=== PATIENT | female | born 1940 | race Caucasian/White ===

== ENCOUNTER 2017-11-07 13:46 | Inpatient (IN) | payer MEDICARE, BC ==
[~2017-11-07] VITALS: Ht 167.6 cm; Wt 78.2 kg
--- NOTE | ~2017-11-07 | OP ---
PATIENT NAME: BRIAN PALACIO MEDICAL RECORD: [id number] :40 LOCATION:[facility] ADMISSION DATE:11/07/17 SURGEON: LUZ MARINA NOVAK MD DATE OF OPERATION: 11/07/2017 DATE OF PROCEDURE: 11/07/2017 beginning and ending 11/08/2017 PREOPERATIVE DIAGNOSIS: Comminuted intra-articular distal femur fracture with split condyle. POSTOPERATIVE DIAGNOSIS: Comminuted intra-articular distal femur fracture with split condyle. PROCEDURE: Knee spanning birail external fixator application across the knee for the above the diagnosis. SURGEON: Luz Marina Novak MD ANESTHESIA: General. INTRAOPERATIVE COMPLICATIONS: None. SUMMARY OF PATHOLOGIC FINDINGS: Under fluoroscopy while putting the ex-fix on the knee, lined up fairly well; however, it was noted at this time that the patient has an amount of flexion as well as a split in the condyle that was not previously seen on radiographs. Rather than trying to proceed with internal fixation, I am going to have a CT scan done with 3D recons for better preoperative planning after this has a chance to settle down. OPERATIVE SUMMARY IN DETAIL: After obtaining the appropriate preoperative orthopedic surgery consent as well as anesthetic consultation, evaluation, and clearance, the patient was brought to the operating room and placed on the operating table in supine position. After adequate general endotracheal anesthesia was administered, the patient's right lower extremity was prepped and draped in routine sterile fashion. Under direct fluoroscopy, traction maneuver was performed and I felt like the fragments would line up better and give her more stabilized leg. Of note, she did come to the OR with the femur flexed distally at 90 degrees while her knee joint was actually straight. After the reduction maneuver and traction, it lined up fairly nicely. Two [place] pins were placed in the mid shaft of the femur under direct fluoroscopic visualization. Two [place] pins were placed in the lateral aspect of the tibia again under correct fluoroscopic visualization. Birail external fixator Roselia II MR compatible frame was used. AP and lateral views showed excellent reapproximation of the posterior cortex; however, there is substantial amount of anterior comminution. This is going to have to be dealt with in an open fashion. Again, radiographs were taken on AP and lateral planes and submitted for final radiologist review. All final needle and sponge counts were correct. TRANSINT:[id number] Voice Confirmation ID: [id number] DOCUMENT ID: [id number] OPERATIVE REPORT [id number] BRIAN PALACIO MD, LUZ MARINA CASSIDY at 1341 CC: [id number] DICTATION DATE: 11/08/17 001 MARBLE MACHINE OPERATOR: 11/08/17 1027 ADM IN [place] [id number] [place] [id number]
--- NOTE | ~2017-11-07 | CN ---
PATIENT NAME:BRIAN CORTEZ MEDICAL RECORD: [id number] : 40 LOCATION:[facility] ADMIT DATE: 11/07/17 ACCOUNT: [id number] CONSULTING PHYSICIAN: LOIS PLUMMER MD REFERRING PHYSICIAN: LUZ MARINA NOVAK MD DATE OF CONSULTATION: 11/09/2017 Otolaryngology Consultation HISTORY OF PRESENT ILLNESS: Ms. Cortez is 2 days status post injury from a fall, started having right ear pain yesterday. She had surgery on her left leg. The pain is worse at night. On talking to her now it was not present when I was evaluating her today, there is no pain currently. There is no drainage from the ear and she has not noticed any change in her hearing. No tinnitus, no dizziness, but she complains of the ear hurting and tried a heating pad last night that did not really help. She and her are both dentists. He was thinking that it did seem to be referred pain that she was having possibly from a molar on that right side. He said the tenderness seemed to locate more towards the angle of the mandible. PAST MEDICAL HISTORY: Reviewed on chart. PHYSICAL EXAMINATION: GENERAL: She is somewhat sedated. Her legs are immobilized and she is in hospital bed, but she is awake and can cooperate. EYES: Sclerae and conjunctivae are normal. FACE: She has got a big hematoma over the left moravian and lateral brow and some abrasions there. No abrasions on the chin or the jaw or lower face that I can see. EARS: Canals and TMs are normal. She has no tenderness in the canal. The skin looks normal. TMs are intact and normal. No middle ear effusions. No blood or anything like that. NOSE: Normal. ORAL CAVITY AND OROPHARYNX: She does sleep with her mouth wide open. Her occlusion looks good. She does not tend to have any difficulty or trismus on moving or opening her jaw and it is not associated really with any pain moving her jaw either. She is somewhat tender over the jaw though and not over the tragus or the ear. Cranial nerves are normal. Oral cavity and oropharynx is normal. She has got a couple of mandibular caps on the right side on the molars, but no evidence of any inflammation or infection. No evidence of any cracked or damaged teeth. Occlusion looks good. DIAGNOSTIC STUDIES: Her CT, she did not have the hematoma on the right moravian. The condyles looked good. I do not see any evidence of a subcondylar or mandible fracture or injury to the condyle. They are both very symmetric. Mastoid is well aerated. Ear looks good on CT. IMPRESSION: Right otalgia. Her says she has a history of some severe TMJ problems a long time ago and her teeth ground down because of that, but has not had so much trouble with it lately. She has no evidence of any ear infection or ear trauma, although it looks like most of blood was in the left moravian. She has a hematoma there, which may have caused some asymmetry to her occlusion that I cannot see, may be exacerbating some TMJ and also since she landed on the side of her face, may have had some subtle trauma to the jaw, which caused some TMJ pain on that right side. That seems to be what is going CONSULT REPORT [id number] BRIAN CORTEZ on. I do not see any fracture or any ear problems itself. I think the pain is referred from that. There is not much we can do for it. She is already in the hospital on medications for the other leg fractures and things like that. We are going to see if this clears itself up hopefully with a little time. I went over some conservative measures for TMJ with them, but they are aware of the those and see her back later. TRANSINT:[id number] Voice Confirmation ID: [id number] DOCUMENT ID: [id number] LOIS PLUMMER MD at 1357 CC: [id number] DICTATION DATE: 11/09/17 1424 AGRICULTURAL EQUIPMENT MECHANIC: 11/09/17 1510 DIS IN 11/14/17 [facility] [address] [place] [address]
--- NOTE | ~2017-11-07 | OP ---
PATIENT NAME: BRIAN PALACIO MEDICAL RECORD: [id number] :40 LOCATION:[facility] ADMISSION DATE:11/07/17 SURGEON: LUZ MARINA NOVAK MD DATE OF OPERATION: 11/11/2017 PREOPERATIVE DIAGNOSIS: Comminuted distal femur fracture. POSTOPERATIVE DIAGNOSIS: Comminuted distal femur fracture. PROCEDURE: Open reduction internal fixation of comminuted distal femur fracture. SURGEON: Luz Marina Novak MD ANESTHESIA: General. INTRAOPERATIVE COMPLICATIONS: None. SUMMARY OF PATHOLOGIC FINDINGS: The patient had severe comminution just above the articular surface of the patellofemoral joint. Please note that the patient had an ex-fix placed previously. The ex-fix was left intact in place throughout the entire case and was left in postoperatively. OPERATIVE SUMMARY IN DETAIL: After obtaining the appropriate preoperative surgery consent as well as anesthetic consultation, evaluation and clearance, the patient was brought to the operating room and placed on the operating table in supine position. After general laryngeal mask was administered, the patient was placed in a right lateral decubitus position. All pressure points were well padded to include down leg peroneal pad as well as axillary roll. The patient was held firmly to the operating room using the vacuum pack suction system. Left lower extremity and hip were then prepped and draped in a routine sterile fashion. An incision was made from the joint midline of the lateral thigh. Dissection was carried gently down to the IT band which was split in line with fibers. The IT band, the vastus lateralis was gently split down to the bone with full exposure and hemostasis maintained. Under fluoroscopy, the plate was placed, slight change in the reduction was done by loosening the superior aspect of the ex-fix and realigning it to the desired position and the ex-fix was locked down again, the plate was then put into place under fluoroscopy using combination of both compression and locking screws. Two [place]-M[place] cables were placed around multi fracture fragments distal in the femur. Final radiographs were taken and submitted for radiologist review. Having completed this, the wound was copiously irrigated and the vastus lateralis was closed with #1 Vicryl followed by closure of the IT band with #2 Ethibond. This was then followed by skin closure with #1 Vicryl, 2-0 Vicryl, and skin adilia. Sterile dressings were applied to both the wound as well as reapplied to the external fixator. The patient was then awakened and taken to recovery in stable condition. All final needle and sponge counts were correct. TRANSINT:[id number] Voice Confirmation ID: [id number] DOCUMENT ID: [id number] OPERATIVE REPORT [id number] BRIAN PALACIO MD, LUZ MARINA CASSIDY at 1842 CC: [id number] DICTATION DATE: 11/11/17 1526 POSTAL TRANSPORTATION CLERK: 11/11/17 1557 DIS IN 11/14/17 [place] [id number] [place] [address]
[2017-11-07 16:07] LABS: BASOPHILS 0.1 % (0-2); EOSINOPHILS 0.3 % (0-7); HEMATOCRIT 32.8 % (36.0-48.0); HEMOGLOBIN 11.4 g/dL (12-16); IMMATURE GRANULOCYTES 0.6 % (0-5); LYMPHOCYTES 18.3 % (15-50); MCH 30.1 pg (26.0-34.0); MCHC 34.8 g/dL (31.0-37.0); MCV 86.5 fL (80.0-100.0); MEAN PLATELET VOLUME 11.4 fL (7.4-10.4); MONOCYTES 14.1 % (2-11); NEUTROPHILS 66.6 % (40-80); PLATELET COUNT 213 10x3/uL (130-400); RBC 3.79 10x6/uL (4.00-5.40); RDW 13.2 % (11.5-14.5)
[2017-11-07 16:15] LABS: INR 1.05 (0.85-1.17); PROTIME 13.3 SECONDS (11.6-15.0)
[2017-11-07 16:22] LABS: ALBUMIN 3.7 g/dL (3.4-5.0); ALKALINE PHOSPHATASE 74 U/L (46-116); ALT (SGPT) 20 U/L (10-68); BILIRUBIN - TOTAL 0.71 mg/dL (0.2-1.3); CALC OSMOLALITY 264 mosm/kg (275-300); CALCIUM 9.1 mg/dL (8.5-10.1); CARBON DIOXIDE 24.8 mmol/L (21.0-32.0); CHLORIDE - SERUM 95 mmol/L (98-107); CREATININE - SERUM 0.7 mg/dL (0.6-1.3); GLUCOSE 111 mg/dL (74-106); POTASSIUM - SERUM 3.9 mmol/L (3.5-5.1); PROTEIN - SERUM 6.9 g/dL (6.4-8.2); SODIUM 131 mmol/L (136-145); UREA NITROGEN 16 mg/dL (7-18); eGFR NON AFRICAN AMERICAN 86 mL/min (90-120)
[2017-11-08] VITALS (14 sets, daily range): BP systolic 107–146; BP diastolic 48–68; Ht 167.6 cm; Wt 78.2 kg
[2017-11-08] MEDS ORDERED: ZIAC 5-6.25 MG1 TAB PO (01:58)
[2017-11-08] MEDS ORDERED: COZAAR100 MG PO (01:58)
[2017-11-08] MEDS ORDERED: CARDIZEM30 MG PO (02:00)
[2017-11-08] MEDS ORDERED: BAYER CHEWABLE81 MG PO (02:00)
[2017-11-08] MEDS ORDERED: MULTIPLE VITAMI1 TA1 PO (02:01)
[2017-11-08 10:18] LABS: HEMATOCRIT 27.6 % (36.0-48.0); HEMOGLOBIN 9.5 g/dL (12-16); MCH 29.8 pg (26.0-34.0); MCHC 34.4 g/dL (31.0-37.0); MCV 86.5 fL (80.0-100.0); MEAN PLATELET VOLUME 10.9 fL (7.4-10.4); RBC 3.19 10x6/uL (4.00-5.40); RDW 13.5 % (11.5-14.5)
[2017-11-08 10:20] LABS: WBC 12.4 10x3/uL (4.8-10.8)
[2017-11-08] MEDS ORDERED: CARDIZEM LA120 MG PO (17:38)
[2017-11-09] VITALS: BP 128/65
[2017-11-09 04:00] VITALS: BP 138/69
[2017-11-09 05:32] LABS: HEMOGLOBIN 8.7 g/dL (12-16)
[2017-11-09 08:04] VITALS: BP 146/56
[2017-11-09 18:11] LABS: BASOPHILS 0.1 % (0-2); EOSINOPHILS 0.1 % (0-7); IMMATURE GRANULOCYTES 1.7 % (0-5); LYMPHOCYTES 9.1 % (15-50); MCH 30.7 pg (26.0-34.0); MCHC 36.3 g/dL (31.0-37.0); MEAN PLATELET VOLUME 10.5 fL (7.4-10.4); MONOCYTES 10.9 % (2-11); NEUTROPHILS 78.1 % (40-80); RBC 3.68 10x6/uL (4.00-5.40); RDW 13.6 % (11.5-14.5); WBC 14.5 10x3/uL (4.8-10.8)
[2017-11-09 18:12] LABS: HEMATOCRIT 31.1 % (36.0-48.0); HEMOGLOBIN 11.3 g/dL (12-16); MCV 84.5 fL (80.0-100.0); PLATELET COUNT 106 10x3/uL (130-400)
[2017-11-09 18:37] LABS: ALKALINE PHOSPHATASE 63 U/L (46-116); ALT (SGPT) 25 U/L (10-68); BILIRUBIN - TOTAL 2.13 mg/dL (0.2-1.3); CALC OSMOLALITY 242 mosm/kg (275-300); CALCIUM 7.9 mg/dL (8.5-10.1); CARBON DIOXIDE 26.7 mmol/L (21.0-32.0); CHLORIDE - SERUM 88 mmol/L (98-107); CREATINE KINASE 167 UL (21-215); CREATININE - SERUM 0.7 mg/dL (0.6-1.3); GLUCOSE 105 mg/dL (74-106); POTASSIUM - SERUM 3.9 mmol/L (3.5-5.1); PROTEIN - SERUM 6.1 g/dL (6.4-8.2); SODIUM 121 mmol/L (136-145); TROPONIN-I 0.033 ng/mL (0.000-0.060); UREA NITROGEN 10 mg/dL (7-18); eGFR NON AFRICAN AMERICAN 86 mL/min (90-120)
[2017-11-09 19:54] VITALS: BP 142/83
[2017-11-09 21:02] LABS: ALBUMIN 2.9 g/dL (3.4-5.0); ALKALINE PHOSPHATASE 67 U/L (46-116); ALT (SGPT) 29 U/L (10-68); BILIRUBIN - TOTAL 2.38 mg/dL (0.2-1.3); CALCIUM 7.9 mg/dL (8.5-10.1); CARBON DIOXIDE 25.2 mmol/L (21.0-32.0); CREATININE - SERUM 0.6 mg/dL (0.6-1.3); GLUCOSE 129 mg/dL (74-106); POTASSIUM - SERUM 3.5 mmol/L (3.5-5.1); PROTEIN - SERUM 6.1 g/dL (6.4-8.2); eGFR NON AFRICAN AMERICAN > 90 mL/min (90-120)
[2017-11-09 21:05] LABS: UREA NITROGEN 13 mg/dL (7-18)
[2017-11-09 21:06] LABS: CALC OSMOLALITY 238 mosm/kg (275-300); CHLORIDE - SERUM 85 mmol/L (98-107); SODIUM 117 mmol/L (136-145)
[2017-11-10] VITALS (7 sets, daily range): BP systolic 98–159; BP diastolic 65–89
[2017-11-10 05:42] LABS: BASOPHILS 0 % (0-2); EOSINOPHILS 0.1 % (0-7); HEMATOCRIT 31.4 % (36.0-48.0); HEMOGLOBIN 11.5 g/dL (12-16); IMMATURE GRANULOCYTES 3.2 % (0-5); LYMPHOCYTES 5.1 % (15-50); MCH 30.5 pg (26.0-34.0); MCHC 36.6 g/dL (31.0-37.0); MCV 83.3 fL (80.0-100.0); MEAN PLATELET VOLUME 10.6 fL (7.4-10.4); MONOCYTES 13.2 % (2-11); NEUTROPHILS 78.4 % (40-80); PLATELET COUNT 120 10x3/uL (130-400); RBC 3.77 10x6/uL (4.00-5.40); RDW 13.2 % (11.5-14.5); WBC 14.6 10x3/uL (4.8-10.8)
[2017-11-10 05:58] LABS: ALBUMIN 2.9 g/dL (3.4-5.0); ALKALINE PHOSPHATASE 80 U/L (46-116); BILIRUBIN - TOTAL 2.21 mg/dL (0.2-1.3); CALCIUM 7.8 mg/dL (8.5-10.1); CARBON DIOXIDE 25.7 mmol/L (21.0-32.0); CHLORIDE - SERUM 86 mmol/L (98-107); CREATININE - SERUM 0.6 mg/dL (0.6-1.3); GLUCOSE 97 mg/dL (74-106); POTASSIUM - SERUM 3.3 mmol/L (3.5-5.1); PROTEIN - SERUM 6.2 g/dL (6.4-8.2); SODIUM 121 mmol/L (136-145); eGFR NON AFRICAN AMERICAN > 90 mL/min (90-120)
[2017-11-10 06:04] LABS: ALT (SGPT) 38 U/L (10-68); CALC OSMOLALITY 242 mosm/kg (275-300); UREA NITROGEN 9 mg/dL (7-18)
[2017-11-11 04:00] VITALS: BP 156/89
[2017-11-11 04:39] LABS: BASOPHILS 0.1 % (0-2); EOSINOPHILS 0.5 % (0-7); HEMATOCRIT 32.9 % (36.0-48.0); HEMOGLOBIN 11.7 g/dL (12-16); IMMATURE GRANULOCYTES 1.9 % (0-5); LYMPHOCYTES 6.9 % (15-50); MCHC 35.6 g/dL (31.0-37.0); MCV 84.4 fL (80.0-100.0); MEAN PLATELET VOLUME 10.9 fL (7.4-10.4); MONOCYTES 18.3 % (2-11); NEUTROPHILS 72.3 % (40-80); RDW 13.4 % (11.5-14.5)
[2017-11-11 04:53] LABS: PLATELET COUNT 154 10x3/uL (130-400); WBC 10.9 10x3/uL (4.8-10.8)
[2017-11-11 05:04] LABS: ALBUMIN 2.6 g/dL (3.4-5.0); ALKALINE PHOSPHATASE 71 U/L (46-116); ALT (SGPT) 29 U/L (10-68); CALC OSMOLALITY 262 mosm/kg (275-300); CALCIUM 7.8 mg/dL (8.5-10.1); CARBON DIOXIDE 27.7 mmol/L (21.0-32.0); CHLORIDE - SERUM 98 mmol/L (98-107); CREATININE - SERUM 0.5 mg/dL (0.6-1.3); GLUCOSE 101 mg/dL (74-106); POTASSIUM - SERUM 3.2 mmol/L (3.5-5.1); PROTEIN - SERUM 5.8 g/dL (6.4-8.2); SODIUM 132 mmol/L (136-145); UREA NITROGEN 8 mg/dL (7-18); eGFR NON AFRICAN AMERICAN > 90 mL/min (90-120)
[2017-11-11 07:47] VITALS: BP 161/78
[2017-11-11 14:41] VITALS: BP 157/91
[2017-11-11 19:53] VITALS: BP 115/63
[2017-11-12] VITALS: BP 131/55; BP 131/78
[2017-11-12 04:00] VITALS: BP 131/85
[2017-11-12 06:38] LABS: BASOPHILS 0 % (0-2); EOSINOPHILS 0 % (0-7); HEMATOCRIT 29.8 % (36.0-48.0); HEMOGLOBIN 10.5 g/dL (12-16); IMMATURE GRANULOCYTES 1.4 % (0-5); LYMPHOCYTES 8.5 % (15-50); MCH 30.1 pg (26.0-34.0); MCHC 35.2 g/dL (31.0-37.0); MCV 85.4 fL (80.0-100.0); MEAN PLATELET VOLUME 10.6 fL (7.4-10.4); MONOCYTES 10.5 % (2-11); NEUTROPHILS 79.6 % (40-80); PLATELET COUNT 177 10x3/uL (130-400); RBC 3.49 10x6/uL (4.00-5.40); RDW 13.8 % (11.5-14.5); WBC 13.2 10x3/uL (4.8-10.8)
[2017-11-12 06:57] LABS: ALBUMIN 2.3 g/dL (3.4-5.0); ALKALINE PHOSPHATASE 60 U/L (46-116); ALT (SGPT) 20 U/L (10-68); BILIRUBIN - TOTAL 0.86 mg/dL (0.2-1.3); CALC OSMOLALITY 262 mosm/kg (275-300); CALCIUM 7.4 mg/dL (8.5-10.1); CARBON DIOXIDE 26.3 mmol/L (21.0-32.0); CHLORIDE - SERUM 98 mmol/L (98-107); CREATININE - SERUM 0.5 mg/dL (0.6-1.3); GLUCOSE 113 mg/dL (74-106); PROTEIN - SERUM 5.3 g/dL (6.4-8.2); SODIUM 131 mmol/L (136-145); UREA NITROGEN 10 mg/dL (7-18); eGFR NON AFRICAN AMERICAN > 90 mL/min (90-120)
[2017-11-12 08:17] VITALS: BP 135/64
[2017-11-12 11:52] VITALS: BP 129/68
[2017-11-12 20:00] VITALS: BP 131/51
[2017-11-13] VITALS: BP 128/63
[2017-11-13 04:00] VITALS: BP 123/65
[2017-11-13 05:41] LABS: BASOPHILS 0.2 % (0-2); EOSINOPHILS 1.1 % (0-7); HEMATOCRIT 29.5 % (36.0-48.0); HEMOGLOBIN 10.2 g/dL (12-16); IMMATURE GRANULOCYTES 2.8 % (0-5); LYMPHOCYTES 11.8 % (15-50); MCH 30.1 pg (26.0-34.0); MCHC 34.6 g/dL (31.0-37.0); MEAN PLATELET VOLUME 10.3 fL (7.4-10.4); NEUTROPHILS 69.1 % (40-80); PLATELET COUNT 188 10x3/uL (130-400); RBC 3.39 10x6/uL (4.00-5.40); RDW 14.2 % (11.5-14.5); WBC 11.9 10x3/uL (4.8-10.8)
[2017-11-13 06:04] LABS: ALBUMIN 2.2 g/dL (3.4-5.0); ALKALINE PHOSPHATASE 61 U/L (46-116); ALT (SGPT) 22 U/L (10-68); BILIRUBIN - TOTAL 0.84 mg/dL (0.2-1.3); CALC OSMOLALITY 265 mosm/kg (275-300); CALCIUM 7.8 mg/dL (8.5-10.1); CARBON DIOXIDE 26.8 mmol/L (21.0-32.0); CHLORIDE - SERUM 100 mmol/L (98-107); CREATININE - SERUM 0.5 mg/dL (0.6-1.3); GLUCOSE 98 mg/dL (74-106); POTASSIUM - SERUM 3.7 mmol/L (3.5-5.1); PROTEIN - SERUM 5.1 g/dL (6.4-8.2); SODIUM 134 mmol/L (136-145); UREA NITROGEN 6 mg/dL (7-18); eGFR NON AFRICAN AMERICAN > 90 mL/min (90-120)
[2017-11-13 09:07] VITALS: BP 105/45
[2017-11-13 13:26] VITALS: BP 140/73
[2017-11-13 16:19] VITALS: BP 129/59
[2017-11-13 20:00] VITALS: BP 127/58
[2017-11-14] VITALS: BP 139/65
[2017-11-14 04:00] VITALS: BP 151/74
[2017-11-14 06:40] LABS: ALKALINE PHOSPHATASE 76 U/L (46-116); ALT (SGPT) 27 U/L (10-68); BILIRUBIN - TOTAL 0.79 mg/dL (0.2-1.3); CALC OSMOLALITY 263 mosm/kg (275-300); CALCIUM 7.7 mg/dL (8.5-10.1); CARBON DIOXIDE 27.3 mmol/L (21.0-32.0); CHLORIDE - SERUM 100 mmol/L (98-107); CREATININE - SERUM 0.4 mg/dL (0.6-1.3); GLUCOSE 83 mg/dL (74-106); POTASSIUM - SERUM 3.7 mmol/L (3.5-5.1); PROTEIN - SERUM 5.1 g/dL (6.4-8.2); SODIUM 134 mmol/L (136-145); UREA NITROGEN 5 mg/dL (7-18); eGFR NON AFRICAN AMERICAN > 90 mL/min (90-120)
[2017-11-14 06:54] LABS: BASOPHILS 0.1 % (0-2); EOSINOPHILS 2.3 % (0-7); HEMATOCRIT 29.1 % (36.0-48.0); HEMOGLOBIN 9.9 g/dL (12-16); IMMATURE GRANULOCYTES 1.9 % (0-5); LYMPHOCYTES 14.1 % (15-50); MCV 88.2 fL (80.0-100.0); MEAN PLATELET VOLUME 10.1 fL (7.4-10.4); MONOCYTES 16.6 % (2-11); PLATELET COUNT 216 10x3/uL (130-400); RDW 14.7 % (11.5-14.5); WBC 9.9 10x3/uL (4.8-10.8)
[2017-11-14 08:21] VITALS: BP 143/67
[2017-11-14] MEDS ORDERED: LOVENOX40 MG/0.4 SC (08:34)
[2017-11-14] MEDS ORDERED: HYDROCODONE-APA1 TAB PO (08:35)
[2017-12-07] MEDS ORDERED: CITRACAL + D E1 EACH PO ×2 (11:25)
[2017-12-07] MEDS ORDERED: ZEBETA5 MG PO (11:25)
[2017-12-07] MEDS ORDERED: NORCO 7.5/325 T1 TA1 PO (11:26)
[2017-12-07] MEDS ORDERED: MULTIPLE VITAMI1 TA1 PO (11:27)
[2017-12-07] MEDS ORDERED: MIRALAX17 GM PO (11:27)
[2017-12-07] MEDS ORDERED: DOK PLUS TABL1 UDTAB PO (11:27)
[2017-12-07] MEDS ORDERED: DIOVAN160 MG PO (11:28)
== END 2017-11-14 14:42 | disposition swing bed (61) | DRG 480 ==
LOC: D.ER 13:46 → D.EDHOLD 17:02 → D.MS 17:02
PROVIDERS: Emergency Medicine; Family Medicine; Orthopaedic Surgery
PROC: 0QH Lower Bones, Insertion (ICD-10-PCS; principal; 2017-11-07 17:30)
PROC: 0QSC04Z Reposition Left Lower Femur with Internal Fixation Device, Open Approach (ICD-10-PCS; 2017-11-11)
DX: S72.452A Displaced supracondylar fracture without intracondylar extension of lower end of left femur, initial encounter for closed fracture (principal); G93.41 Metabolic encephalopathy; R53.2 Functional quadriplegia; D62 Acute posthemorrhagic anemia; E87.1 Hypo-osmolality and hyponatremia; J45.909 Unspecified asthma, uncomplicated; W19.XXXA Unspecified fall, initial encounter; H92.01 Otalgia, right ear; I10 Essential (primary) hypertension; I48.91 Unspecified atrial fibrillation; K59.00 Constipation, unspecified

== ENCOUNTER 2017-12-08 07:54 | Inpatient (IN) | payer MEDICARE, BC ==
[~2017-12-08] VITALS: Ht 167.6 cm; Wt 66.8 kg
--- NOTE | ~2017-12-08 | OP ---
PATIENT NAME: BRIAN CORTEZ MEDICAL RECORD: [id number] :40 LOCATION:[facility] ADMISSION DATE:12/08/17 SURGEON: LUZ MARINA NOVAK MD DATE OF OPERATION: 12/08/2017 PREOPERATIVE DIAGNOSIS: Retained external fixator -- knee spanning, left lower extremity, birail. POSTOPERATIVE DIAGNOSIS: Retained external fixator -- knee spanning left lower extremity, birail. PROCEDURE: Removal of external fixator, left lower extremity. SURGEON: Luz Marina Novak MD ANESTHESIA: TIVA. INTRAOPERATIVE COMPLICATIONS: None. SUMMARY OF PATHOLOGIC FINDINGS: Essentially none. 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 External fixator was left in place to protect the internal fixation and allow for interim healing. She is brought back today for removal of the external fixator and admission to rehab. OPERATIVE SUMMARY IN DETAIL: After obtaining the appropriate preoperative orthopedic surgery consent as well as anesthetic consultation, evaluation and clearance, the patient was brought to the operating room and placed on the operating table in supine position. After adequate TIVA anesthesia was administered, the entire lower extremity and external fixator construct was prepped and draped in a routine sterile fashion. Serial and sequential removal of the birail external fixator was followed by removal of the apex pins under TIVA. The apex pins were removed. The apex pin sites were gently irrigated covered with Betadine cream and Xeroform dressing. Sterile dressings were applied. The patient was then awakened and taken to recovery room in stable condition. TRANSINT:[id number] Voice Confirmation ID: [id number] DOCUMENT ID: [id number] LUZ MARINA NOVAK MD at 1349 CC: [id number] DICTATION DATE: 12/08/17 1303 TEST EQUIPMENT MECHANIC: 12/08/17 1610 ADM IN [place] [id number] [place] [address]
[~2017-12-08 07:54] MED LIST: BAYER CHEWABLE81 MG PO; CARDIZEM LA120 MG PO; CARDIZEM30 MG PO; CITRACAL + D E1 EACH PO; COZAAR100 MG PO; DIOVAN160 MG PO; DOK PLUS TABL1 UDTAB PO; HYDROCODONE-APA1 TAB PO; LOVENOX40 MG/0.4 SC; MIRALAX17 GM PO; MULTIPLE VITAMI1 TA1 PO; NORCO 7.5/325 T1 TA1 PO; ZEBETA5 MG PO; ZIAC 5-6.25 MG1 TAB PO
[2017-12-08 09:51] VITALS: BP 138/77; BMI 23.9
[2017-12-08 14:34] VITALS: BP 143/76; Ht 167.6 cm; Wt 66.8 kg
[2017-12-08 16:26] VITALS: BP 144/76
[2017-12-08 22:29] VITALS: BP 127/79
[2017-12-09 04:53] VITALS: BP 134/74
[2017-12-09 05:31] LABS: HEMATOCRIT 33.8 % (36.0-48.0); HEMOGLOBIN 11.3 g/dL (12-16)
[2017-12-09 08:26] VITALS: BP 160/78
[2017-12-09 12:47] VITALS: BP 176/84
[2017-12-09 16:17] VITALS: BP 118/61
[2017-12-09 20:00] VITALS: BP 117/64
[2017-12-10] VITALS: BP 122/71
[2017-12-10 04:00] VITALS: BP 127/69
[2017-12-10 06:24] LABS: HEMATOCRIT 32.3 % (36.0-48.0); HEMOGLOBIN 10.8 g/dL (12-16); MCH 29.9 pg (26.0-34.0); MCHC 33.4 g/dL (31.0-37.0); MCV 89.5 fL (80.0-100.0); MEAN PLATELET VOLUME 10.8 fL (7.4-10.4); RBC 3.61 10x6/uL (4.00-5.40); RDW 13.9 % (11.5-14.5); WBC 4.8 10x3/uL (4.8-10.8)
[2017-12-10 06:33] LABS: CALC OSMOLALITY 278 mosm/kg (275-300); CALCIUM 8.4 mg/dL (8.5-10.1); CARBON DIOXIDE 32.4 mmol/L (21.0-32.0); CHLORIDE - SERUM 104 mmol/L (98-107); CREATININE - SERUM 0.5 mg/dL (0.6-1.3); GLUCOSE 93 mg/dL (74-106); SODIUM 141 mmol/L (136-145); UREA NITROGEN 8 mg/dL (7-18); eGFR NON AFRICAN AMERICAN > 90 mL/min (90-120)
[2017-12-10 07:42] VITALS: BP 159/79
[2017-12-10 12:18] VITALS: BP 131/70
[2017-12-10 15:49] VITALS: BP 86/44
[2017-12-10 20:00] VITALS: BP 155/81
[2017-12-11 05:39] LABS: HEMATOCRIT 31.7 % (36.0-48.0); HEMOGLOBIN 10.5 g/dL (12-16)
[2017-12-11 08:21] VITALS: BP 142/73
[2017-12-11 12:29] VITALS: BP 140/63
[2017-12-11 16:35] VITALS: BP 110/57
[2017-12-12 04:20] VITALS: BP 145/77
[2017-12-12 07:42] VITALS: BP 141/68
[2017-12-12 12:24] VITALS: BP 124/68
[2017-12-12] MEDS ORDERED: ELIQUIS2.5 MG PO (14:11)
== END 2017-12-12 16:45 | DRG 561 ==
LOC: D.OPS 07:54 → D.PAN 11:45 → D.OPS 11:45 → D.MS 13:39 → D.OPS 13:40 → D.MS 12-12 16:45
PROVIDERS: Orthopaedic Surgery
PROC: 0QPCX5Z Removal of External Fixation Device from Left Lower Femur, External Approach (ICD-10-PCS; principal; 2017-12-08 10:15)
DX: S72.402D Unspecified fracture of lower end of left femur, subsequent encounter for closed fracture with routine healing (principal); X58.XXXD Exposure to other specified factors, subsequent encounter; I10 Essential (primary) hypertension; I48.91 Unspecified atrial fibrillation; J45.909 Unspecified asthma, uncomplicated

== ENCOUNTER 2017-12-12 17:44 | Inpatient (IN) | payer MEDICARE, BC ==
[~2017-12-12] VITALS: Ht 167.6 cm; Wt 67.1 kg
--- NOTE | ~2017-12-12 | RHP ---
PATIENT: BRIAN PALACIO MEDICAL RECORD: [id number] ACCOUNT: [id number] LOCATION:[facility]19 : 40 ADMISSION DATE: 12/12/17 REHABILITATION HISTORY AND PHYSICAL EXAMINATION POST ADMISSION PHYSICIAN EXAMINATION DATE OF ADMISSION: 12/12/2017 ADMITTING DIAGNOSIS: Disuse myopathy. 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 The patient got this diagnosis secondary to prolonged hospitalization, nonweightbearing status, status post comminuted fracture of her left distal femur and application of external fixator. On 10/28, she fell while going to the doctor and fractured her left femur. She went to the OR, had an external fixator placed. On 11/11, she had an ORIF of her left distal femur. She was toe-touch weightbearing status and was sent to a skilled facility in [place]. On 12/08, she was admitted for removal of the external fixator. Postop, she had blood loss anemia, low-grade fever, and hypokalemia. She has got prolonged immobility, progressive generalized weakness, especially in lower extremities affecting her tolerance to PT. She is very fatigued, has limited flexion and extension of her lower extremities. Proximal muscle strength is decreased and she is gmnekldm-bd-dgk assist for ADLs and tcmgqtgz-pj-rof assist for sit to stand and bed to chair. She is highly motivated and has good family support to regain her strength, return back home in her prior level of functioning where she was independent without any type of assisting device. COMORBIDITIES: Include status post removal of external fixator, comminuted left distal femur fracture, hypokalemia, functional quadriplegia, acute blood loss anemia, asthma, history of TIA, metabolic encephalopathy. PAST MEDICAL HISTORY: Significant for a TIA in the past. She has had sinus problems, cataracts, got a history of chronic atrial fib and asthma. PAST SURGICAL HISTORY: Includes wrist fracture, hip surgery, hysterectomy. ALLERGIES: SULFA, EUCALYPTUS, AND APRICOTS. CURRENT MEDICATIONS: Include MiraLax 17 grams in 8 ounces of water daily, multivitamin daily, Cardizem CD 120 mg daily, Bisoprolol 5 mg daily, valsartan 160 mg q.h.s. She is on Os-Juni D daily, hydrocodone 7.5/325 one tab q.4 hours p.r.n., aspirin chewable 81 mg daily, and Eliquis 2.5 mg b.i.d. HABITS: No alcohol or tobacco use. FAMILY HISTORY: Noncontributory. SOCIAL HISTORY: The patient hopes to return back home and get back to her prior level of functioning where she was independent without assisting device. REVIEW OF SYSTEMS: GENERAL: Does complain of weakness and fatigue. HEENT: Denies cold, cough, or congestion. CARDIOVASCULAR: Denies chest pain. HISTORY AND PHYSICAL [id number] BRIAN PALACIO PHYSICAL EXAMINATION: VITAL SIGNS: Stable, afebrile. GENERAL: Elderly female, in no distress. HEENT: Normocephalic and atraumatic. Mucosa moist. NECK: Supple. No lymphadenopathy. LUNGS: Clear at this time. HEART: An irregular rate and rhythm. ABDOMEN: Benign. EXTREMITIES: Consistent with surgery and external fixator placement and removal, but she has no signs of any type of infection. NEUROLOGIC: She seems intact. She does have though proximal muscle weakness. LABORATORY DATA: Her white count is 4.8, H&H of 11 and 34, and platelet count is 241. Her sodium is 140, potassium 3.4, BUN and creatinine of 6 and 0.5 and blood sugar is noted to be 91. ASSESSMENT: This is a 77-year-old female patient admitted to rehab with a working diagnosis of disuse myopathy. The patient has potential to make improvement. We instituted the following multidisciplinary therapies include, but not limited to physical, occupational, respiratory, speech, nutritional services, prosthetics, and orthotics. Given her complex medical condition and risk for more complications, rehabilitation services cannot be provided at a low level of care such as usp facility. PLAN: 1. Admit to [facility] rehab for intensive therapy to include the following disciplines: A. Physical therapy to improve gait, all transfer skills and bed mobility to a modified independent level. B. Occupational therapy to be improve activities of daily living to a modified independent level. C. Case management to assist with discharge planning and placement options. D. Nutrition to assist with nutritional needs. E. Rehabilitation nursing to assist in monitoring the patient's underlying medical conditions and to assist with any type bowel or bladder management. 2. The patient's current medication and medical care will be continued. 3. The patient will be placed on standard fall precautions. 4. The patient's estimated length of stay is approximately 7-10 days. 5. Discuss this patient during care team staff meeting this week. I am going to replace her potassium and followup in the a.m. TRANSINT:[id number] Voice Confirmation ID: [id number] DOCUMENT ID: [id number] 12/15/2017 Edited for juliana HEART. [facility] notes whether there has been none or any medical/functional change since admission: - No chance since preadmission screen. [facility] attests patient continues to be appropriate for IRF: - Continues to be appropriate. HISTORY AND PHYSICAL [id number] BRIAN PALACIO SCOTT MD at 1012 CC: [id number] DICTATION DATE: 12/13/17 08 CHEMICAL INSTRUMENTATION OFFICER: 12/13/17 0850 ADM IN [place] [id number] [place] [address]
[~2017-12-12 17:44] MED LIST changes: +ELIQUIS2.5 MG PO
[2017-12-12 18:08] VITALS: BP 93/55; BMI 23.9
[2017-12-12 19:00] VITALS: BP 115/50
[2017-12-13 06:39] LABS: BASOPHILS 0.2 % (0-2); EOSINOPHILS 2.3 % (0-7); HEMATOCRIT 33.6 % (36.0-48.0); HEMOGLOBIN 11.2 g/dL (12-16); IMMATURE GRANULOCYTES 0.8 % (0-5); LYMPHOCYTES 25.6 % (15-50); MCHC 33.3 g/dL (31.0-37.0); MCV 90.1 fL (80.0-100.0); MONOCYTES 16.8 % (2-11); NEUTROPHILS 54.3 % (40-80); PLATELET COUNT 241 10x3/uL (130-400); RBC 3.73 10x6/uL (4.00-5.40); RDW 14.2 % (11.5-14.5); WBC 4.8 10x3/uL (4.8-10.8)
[2017-12-13 06:52] LABS: CALC OSMOLALITY 276 mosm/kg (275-300); CALCIUM 9.1 mg/dL (8.5-10.1); CARBON DIOXIDE 32.8 mmol/L (21.0-32.0); CHLORIDE - SERUM 103 mmol/L (98-107); CREATININE - SERUM 0.5 mg/dL (0.6-1.3); GLUCOSE 91 mg/dL (74-106); POTASSIUM - SERUM 3.4 mmol/L (3.5-5.1); SODIUM 140 mmol/L (136-145); UREA NITROGEN 6 mg/dL (7-18); eGFR NON AFRICAN AMERICAN > 90 mL/min (90-120)
[2017-12-13 08:05] VITALS: BP 122/63
[2017-12-13 10:55] VITALS: Ht 167.6 cm; Wt 67.1 kg
[2017-12-13 19:00] VITALS: BP 130/68
[2017-12-14 07:29] LABS: BASOPHILS 0 % (0-2); EOSINOPHILS 2.8 % (0-7); HEMATOCRIT 34.6 % (36.0-48.0); HEMOGLOBIN 11.6 g/dL (12-16); LYMPHOCYTES 17.8 % (15-50); MCHC 33.5 g/dL (31.0-37.0); MCV 89.4 fL (80.0-100.0); MEAN PLATELET VOLUME 10.6 fL (7.4-10.4); MONOCYTES 17.6 % (2-11); NEUTROPHILS 58.8 % (40-80); PLATELET COUNT 249 10x3/uL (130-400); RBC 3.87 10x6/uL (4.00-5.40); RDW 14.1 % (11.5-14.5); WBC 4.9 10x3/uL (4.8-10.8)
[2017-12-14 07:44] LABS: CALC OSMOLALITY 276 mosm/kg (275-300); CALCIUM 9.2 mg/dL (8.5-10.1); CARBON DIOXIDE 31.7 mmol/L (21.0-32.0); CHLORIDE - SERUM 103 mmol/L (98-107); CREATININE - SERUM 0.5 mg/dL (0.6-1.3); GLUCOSE 96 mg/dL (74-106); POTASSIUM - SERUM 3.7 mmol/L (3.5-5.1); SODIUM 140 mmol/L (136-145); UREA NITROGEN 7 mg/dL (7-18); eGFR NON AFRICAN AMERICAN > 90 mL/min (90-120)
[2017-12-14 08:21] VITALS: BP 113/66
[2017-12-14 19:05] VITALS: BP 126/51
[2017-12-15 07:33] VITALS: BP 140/65
[2017-12-15 19:15] VITALS: BP 122/56
[2017-12-16 05:52] LABS: BASOPHILS 0.2 % (0-2); EOSINOPHILS 2.5 % (0-7); IMMATURE GRANULOCYTES 1.9 % (0-5); LYMPHOCYTES 23.4 % (15-50); MCH 29.9 pg (26.0-34.0); MCHC 33.3 g/dL (31.0-37.0); MCV 89.8 fL (80.0-100.0); MEAN PLATELET VOLUME 10.6 fL (7.4-10.4); MONOCYTES 18.4 % (2-11); NEUTROPHILS 53.6 % (40-80); PLATELET COUNT 236 10x3/uL (130-400); RBC 3.34 10x6/uL (4.00-5.40); RDW 14.2 % (11.5-14.5); WBC 4.8 10x3/uL (4.8-10.8)
[2017-12-16 06:01] LABS: CALC OSMOLALITY 278 mosm/kg (275-300); CALCIUM 9.1 mg/dL (8.5-10.1); CARBON DIOXIDE 33.1 mmol/L (21.0-32.0); CHLORIDE - SERUM 103 mmol/L (98-107); CREATININE - SERUM 0.6 mg/dL (0.6-1.3); GLUCOSE 94 mg/dL (74-106); POTASSIUM - SERUM 4.1 mmol/L (3.5-5.1); SODIUM 141 mmol/L (136-145); UREA NITROGEN 7 mg/dL (7-18); eGFR NON AFRICAN AMERICAN > 90 mL/min (90-120)
[2017-12-16 08:00] VITALS: BP 134/75
[2017-12-16 19:00] VITALS: BP 126/64
[2017-12-17 07:00] VITALS: BP 146/71
[2017-12-17 23:09] VITALS: BP 144/76
[2017-12-18 08:00] VITALS: BP 155/72
[2017-12-18 20:15] VITALS: BP 143/81
[2017-12-19 07:45] LABS: BASOPHILS 0.2 % (0-2); EOSINOPHILS 1.5 % (0-7); HEMATOCRIT 31.6 % (36.0-48.0); HEMOGLOBIN 10.4 g/dL (12-16); IMMATURE GRANULOCYTES 1.3 % (0-5); LYMPHOCYTES 19.2 % (15-50); MCH 29.6 pg (26.0-34.0); MCHC 32.9 g/dL (31.0-37.0); MEAN PLATELET VOLUME 10.5 fL (7.4-10.4); MONOCYTES 19.4 % (2-11); NEUTROPHILS 58.4 % (40-80); PLATELET COUNT 254 10x3/uL (130-400); RBC 3.51 10x6/uL (4.00-5.40); RDW 14.1 % (11.5-14.5); WBC 4.5 10x3/uL (4.8-10.8)
[2017-12-19 08:00] VITALS: BP 150/72
[2017-12-19 08:02] LABS: CALC OSMOLALITY 278 mosm/kg (275-300); CALCIUM 8.9 mg/dL (8.5-10.1); CARBON DIOXIDE 32.4 mmol/L (21.0-32.0); CHLORIDE - SERUM 104 mmol/L (98-107); CREATININE - SERUM 0.6 mg/dL (0.6-1.3); GLUCOSE 92 mg/dL (74-106); SODIUM 141 mmol/L (136-145); UREA NITROGEN 6 mg/dL (7-18); eGFR NON AFRICAN AMERICAN > 90 mL/min (90-120)
[2017-12-19 19:00] VITALS: BP 142/70
[2017-12-20 07:44] VITALS: BP 149/67
[2017-12-20 19:27] VITALS: BP 104/51
[2017-12-21 07:18] LABS: BASOPHILS 0.2 % (0-2); EOSINOPHILS 1.1 % (0-7); HEMATOCRIT 30.3 % (36.0-48.0); HEMOGLOBIN 10.1 g/dL (12-16); LYMPHOCYTES 27.8 % (15-50); MCH 30.2 pg (26.0-34.0); MCHC 33.3 g/dL (31.0-37.0); MCV 90.7 fL (80.0-100.0); MEAN PLATELET VOLUME 10.9 fL (7.4-10.4); MONOCYTES 15.1 % (2-11); NEUTROPHILS 53.8 % (40-80); PLATELET COUNT 227 10x3/uL (130-400); RBC 3.34 10x6/uL (4.00-5.40); RDW 14.1 % (11.5-14.5); WBC 4.5 10x3/uL (4.8-10.8)
[2017-12-21 07:25] LABS: CALC OSMOLALITY 278 mosm/kg (275-300); CARBON DIOXIDE 32.5 mmol/L (21.0-32.0); CHLORIDE - SERUM 103 mmol/L (98-107); CREATININE - SERUM 0.5 mg/dL (0.6-1.3); GLUCOSE 104 mg/dL (74-106); POTASSIUM - SERUM 3.6 mmol/L (3.5-5.1); SODIUM 141 mmol/L (136-145); eGFR NON AFRICAN AMERICAN > 90 mL/min (90-120)
[2017-12-21 07:27] LABS: UREA NITROGEN 8 mg/dL (7-18)
[2017-12-21 07:38] VITALS: BP 125/68
[2017-12-21 19:00] VITALS: BP 129/59
[2017-12-22 07:52] VITALS: BP 108/65
[2017-12-22 19:00] VITALS: BP 93/45
[2017-12-23 08:19] VITALS: BP 98/58
[2017-12-23 19:00] VITALS: BP 122/55
[2017-12-24 06:58] LABS: BASOPHILS 0.2 % (0-2); EOSINOPHILS 1.7 % (0-7); HEMATOCRIT 32.3 % (36.0-48.0); HEMOGLOBIN 10.7 g/dL (12-16); IMMATURE GRANULOCYTES 0.8 % (0-5); MCH 29.9 pg (26.0-34.0); MCHC 33.1 g/dL (31.0-37.0); MCV 90.2 fL (80.0-100.0); MEAN PLATELET VOLUME 10.5 fL (7.4-10.4); MONOCYTES 16.1 % (2-11); NEUTROPHILS 58.2 % (40-80); PLATELET COUNT 267 10x3/uL (130-400); RBC 3.58 10x6/uL (4.00-5.40); RDW 14.2 % (11.5-14.5); WBC 4.8 10x3/uL (4.8-10.8)
[2017-12-24 07:12] LABS: CALC OSMOLALITY 276 mosm/kg (275-300); CALCIUM 9.2 mg/dL (8.5-10.1); CARBON DIOXIDE 31.7 mmol/L (21.0-32.0); CHLORIDE - SERUM 103 mmol/L (98-107); CREATININE - SERUM 0.6 mg/dL (0.6-1.3); GLUCOSE 94 mg/dL (74-106); POTASSIUM - SERUM 3.8 mmol/L (3.5-5.1); SODIUM 140 mmol/L (136-145); UREA NITROGEN 8 mg/dL (7-18); eGFR NON AFRICAN AMERICAN > 90 mL/min (90-120)
[2017-12-24 08:00] VITALS: BP 108/68
[2017-12-24 20:49] VITALS: BP 108/47
[2017-12-25 08:00] VITALS: BP 157/80
[2017-12-25 19:30] VITALS: BP 122/62
[2017-12-26 06:33] LABS: BASOPHILS 0.2 % (0-2); EOSINOPHILS 1.8 % (0-7); HEMATOCRIT 31.8 % (36.0-48.0); HEMOGLOBIN 10.6 g/dL (12-16); IMMATURE GRANULOCYTES 1.4 % (0-5); LYMPHOCYTES 17.1 % (15-50); MCH 29.9 pg (26.0-34.0); MCHC 33.3 g/dL (31.0-37.0); MCV 89.6 fL (80.0-100.0); MEAN PLATELET VOLUME 10.3 fL (7.4-10.4); MONOCYTES 19.4 % (2-11); NEUTROPHILS 60.1 % (40-80); PLATELET COUNT 249 10x3/uL (130-400); RBC 3.55 10x6/uL (4.00-5.40); RDW 13.9 % (11.5-14.5); WBC 5.1 10x3/uL (4.8-10.8)
[2017-12-26 07:02] LABS: CALC OSMOLALITY 276 mosm/kg (275-300); CALCIUM 9.3 mg/dL (8.5-10.1); CHLORIDE - SERUM 102 mmol/L (98-107); CREATININE - SERUM 0.6 mg/dL (0.6-1.3); GLUCOSE 94 mg/dL (74-106); POTASSIUM - SERUM 3.4 mmol/L (3.5-5.1); SODIUM 140 mmol/L (136-145); UREA NITROGEN 8 mg/dL (7-18); eGFR NON AFRICAN AMERICAN > 90 mL/min (90-120)
[2017-12-26 08:00] VITALS: BP 137/62
[2017-12-26 19:00] VITALS: BP 121/59
[2017-12-27 06:17] LABS: BASOPHILS 0.2 % (0-2); EOSINOPHILS 1.3 % (0-7); HEMATOCRIT 32.8 % (36.0-48.0); HEMOGLOBIN 10.9 g/dL (12-16); IMMATURE GRANULOCYTES 1.3 % (0-5); MCH 29.9 pg (26.0-34.0); MCHC 33.2 g/dL (31.0-37.0); MCV 90.1 fL (80.0-100.0); MEAN PLATELET VOLUME 10.6 fL (7.4-10.4); MONOCYTES 19.9 % (2-11); NEUTROPHILS 58.3 % (40-80); PLATELET COUNT 262 10x3/uL (130-400); RBC 3.64 10x6/uL (4.00-5.40); WBC 5.3 10x3/uL (4.8-10.8)
[2017-12-27 06:38] LABS: ANION GAP 8.7 mmol/L (8-16); CALCIUM 9.8 mg/dL (8.5-10.1); CARBON DIOXIDE 34.9 mmol/L (21.0-32.0); POTASSIUM - SERUM 3.6 mmol/L (3.5-5.1)
[2017-12-27 06:40] LABS: CREATININE - SERUM 0.9 mg/dL (0.6-1.3)
[2017-12-27 08:33] VITALS: BP 126/62
[2017-12-27 19:00] VITALS: BP 103/45
[2017-12-28 07:37] VITALS: BP 92/53
[2017-12-28] MEDS ORDERED: ZEBETA5 MG PO (12:46)
[2017-12-28] MEDS ORDERED: K-DUR20 MEQ PO (12:47)
[2017-12-28] MEDS ORDERED: LASIX20 MG PO (12:51)
[2017-12-28 18:00] VITALS: BP 131/60
[2017-12-29 00:38] VITALS: BP 135/63
[2017-12-29 06:12] VITALS: BP 123/60
[2017-12-29 13:39] VITALS: BP 117/61
== END 2017-12-29 15:15 | disposition home health service (06) | DRG 91 ==
LOC: D.REHAB 17:44
PROVIDERS: Emergency Medicine; Family Medicine
DX: G72.89 Other specified myopathies (principal); R53.2 Functional quadriplegia; G93.41 Metabolic encephalopathy; D62 Acute posthemorrhagic anemia; S72.402D Unspecified fracture of lower end of left femur, subsequent encounter for closed fracture with routine healing; W19.XXXD Unspecified fall, subsequent encounter; E87.6 Hypokalemia; J45.909 Unspecified asthma, uncomplicated

== ENCOUNTER 2020-01-27 19:06 | Inpatient (IN) | payer MEDICARE, BC ==
[~2020-01-27] VITALS: Ht 167.6 cm; Wt 59.9 kg
[~2020-01-27 19:06] MED LIST changes: +K-DUR20 MEQ PO; +LASIX20 MG PO
[2020-01-27] MEDS ORDERED: COZAAR100 MG PO (19:10)
[2020-01-27] MEDS ORDERED: BISOPROLOL FUMAR5 MG PO (19:10)
[2020-01-27] MEDS ORDERED: NORVASC5 MG PO (19:11)
[2020-01-27 20:00] VITALS: BP 142/63
[2020-01-27 20:43] LABS: BASOPHILS 0.1 % (0-2); EOSINOPHILS 0 % (0-7); HEMATOCRIT 34.2 % (36.0-48.0); HEMOGLOBIN 11.8 g/dL (12-16); IMMATURE GRANULOCYTES 1.2 % (0-5); LYMPHOCYTES 4.9 % (15-50); MCH 29.7 pg (26.0-34.0); MCHC 34.5 g/dL (31.0-37.0); MCV 86.1 fL (80.0-100.0); MEAN PLATELET VOLUME 10.2 fL (7.4-10.4); MONOCYTES 10.6 % (2-11); NEUTROPHILS 83.2 % (40-80); RBC 3.97 10x6/uL (4.00-5.40); RDW 13.4 % (11.5-14.5); WBC 12.1 10x3/uL (4.8-10.8)
[2020-01-27 20:45] LABS: PLATELET COUNT 190 10x3/uL (130-400)
[2020-01-27 20:52] LABS: APTT 32.2 SECONDS (22.8-39.4); INR 1.12 (0.85-1.17); PROTIME 14.3 SECONDS (11.6-15.0)
[2020-01-27 21:00] VITALS: BP 130/60
[2020-01-27 21:03] LABS: BILIRUBIN NEGATIVE (NEGATIVE); GLUCOSE NEGATIVE (NEGATIVE); KETONE MODERATE mg/dL (NEGATIVE); NITRITE NEGATIVE (NEGATIVE); UROBILINOGEN NORMAL (NORMAL)
[2020-01-27 21:05] LABS: WHITE CELLS - URINE 0-5 /hpf (NEGATIVE)
[2020-01-27 21:06] LABS: BACTERIA FEW /hpf (NEGATIVE); EPITHELIAL CELLS 0-5 /hpf (0-5)
[2020-01-27 21:07] LABS: ALBUMIN 3.8 g/dL (3.4-5.0); ALKALINE PHOSPHATASE 96 U/L (30-120); ALT (SGPT) 49 U/L (10-68); BILIRUBIN - TOTAL 1.16 mg/dL (0.2-1.3); CALC OSMOLALITY 259 mosm/kg (275-300); CALCIUM 8.4 mg/dL (8.5-10.1); CARBON DIOXIDE 27.8 mmol/L (21.0-32.0); CHLORIDE - SERUM 95 mmol/L (98-107); CREATININE - SERUM 0.7 mg/dL (0.6-1.3); GLUCOSE 135 mg/dL (74-106); PRO BNP 886 pg/mL (0-450); PROTEIN - SERUM 7.3 g/dL (6.4-8.2); SODIUM 129 mmol/L (136-145); UREA NITROGEN 11 mg/dL (7-18); eGFR NON AFRICAN AMERICAN 85 mL/min (90-120)
[2020-01-27 21:09] LABS: TROPONIN-I < 0.017 ng/mL (0.000-0.060)
[2020-01-27 21:12] LABS: POTASSIUM - SERUM 2.8 mmol/L (3.5-5.1)
--- NOTE | 2020-01-27 22:35 | NUR ---
RECEIVED PT TO FLOOR FROM ER VIA STRETCHER. RIGHT WRIST BRUISED AND JABARI WRAPPED. PT RATES RIGHT GROIN/HIP PAIN 2/10 LONG NO MOVEMENT IS INVOLVED. REVIEWED HOME MEDS AND HISTORY. EKG DONE. PT EATING TURKEY SANDWICH. INSTRUCTED PT ON INCENTIVE SPIROMETER. NO OTHER NEEDS. WILL CONTINUE TO MONITOR.
[2020-01-27 22:46] VITALS: BP 146/69
[2020-01-27] MEDS ORDERED: MULTI-DAY VITAM1 TAB PO (22:46)
[2020-01-28 03:06] VITALS: BMI 21.3
[2020-01-28 04:00] VITALS: BP 127/62
[2020-01-28 05:16] LABS: CALC OSMOLALITY 263 mosm/kg (275-300); CALCIUM 8.1 mg/dL (8.5-10.1); CARBON DIOXIDE 28.5 mmol/L (21.0-32.0); CHLORIDE - SERUM 95 mmol/L (98-107); CREATININE - SERUM 0.6 mg/dL (0.6-1.3); GLUCOSE 108 mg/dL (74-106); POTASSIUM - SERUM 3.2 mmol/L (3.5-5.1); SODIUM 131 mmol/L (136-145); UREA NITROGEN 13 mg/dL (7-18); eGFR NON AFRICAN AMERICAN > 90 mL/min (90-120)
--- NOTE | 2020-01-28 08:05 | NUR ---
ALERT AND ORIENTED. LUNGS CLEAR BILATERALLY. HEART SOUNDS S1 AND S2 HEARD IN ALL MEJIA. BOWEL SOUNDS ACTIVE X 4. SKIN INTACT WITHOUT REDNESS. IV TO LFA PATENT WITHOUT REDNESS. DENIES NEEDS. BED LOW. CALL ADAMS AND PERSONAL ITEMS IN REACH. WILL CONTINUE TO MONITOR.
[2020-01-28 09:12] VITALS: BP 128/61
--- NOTE | 2020-01-28 09:49 | NUR ---
CONSENTS OBTAINED FOR PROCEDURE TOMORROW.
[2020-01-28 12:38] VITALS: BP 139/58
--- NOTE | 2020-01-28 12:45 | NUR ---
LEYDA MADE AWARE THAT WILL NEEDED TO MED SURG. NONE IN [place]. STATES WILL BRING.
--- NOTE | 2020-01-28 13:04 | NUR ---
RESTING IN BED. GRANDDAUGHTER AT BEDSIDE. DENIES NEEDS. WILL CONTINUE TO MONITOR.
--- NOTE | 2020-01-28 13:42 | NUR ---
PHARMACY STATES HAVE TO GET ZEBETA FROM [facility]. STILL WAITING MED.
[2020-01-28 14:22] VITALS: Ht 167.6 cm; Wt 59.9 kg
[2020-01-28 18:45] VITALS: BP 150/70
--- NOTE | 2020-01-28 18:50 | NUR ---
RESTING IN BED. DENIES NEEDS. WILL CONTINUE TO MONITOR.
--- NOTE | 2020-01-28 19:00 | NUR ---
BEDSIDE REPORT RECEIVED AND CARE OF PT ASSUMED. PT LYING IN LOW JIANG'S POSITION VISITING WITH SPOUSE. IV TO LEFT AC PATENT WITH NS INFUSING AT 75 ML/HR. RIGHT AR IN SPLINT AND WRAPPED WITH JABARI WRAP. SCD'S IN PLACE ON BLE. WILL MONITOR FOR NEEDS.
[2020-01-28 20:00] VITALS: BP 158/78
--- NOTE | 2020-01-28 21:45 | NUR ---
HS MEDICATIONS GIVEN TO INCLUDE MORPHINE PER REQUEST FOR PAIN. WILL CONTINUE TO MONITOR FOR NEEDS.
[2020-01-29 04:00] VITALS: BP 154/76
[2020-01-29 06:55] LABS: HEMATOCRIT 32.4 % (36.0-48.0); HEMOGLOBIN 10.9 g/dL (12-16); MCH 29.1 pg (26.0-34.0); MCHC 33.6 g/dL (31.0-37.0); MCV 86.6 fL (80.0-100.0); MEAN PLATELET VOLUME 11.1 fL (7.4-10.4); PLATELET COUNT 183 10x3/uL (130-400); RBC 3.74 10x6/uL (4.00-5.40); RDW 13.6 % (11.5-14.5)
[2020-01-29 07:03] LABS: WBC 8.8 10x3/uL (4.8-10.8)
[2020-01-29 07:16] LABS: ALKALINE PHOSPHATASE 81 U/L (30-120); ALT (SGPT) 32 U/L (10-68); BILIRUBIN - TOTAL 0.96 mg/dL (0.2-1.3); CALC OSMOLALITY 263 mosm/kg (275-300); CALCIUM 8.2 mg/dL (8.5-10.1); CARBON DIOXIDE 26.2 mmol/L (21.0-32.0); CHLORIDE - SERUM 99 mmol/L (98-107); CREATININE - SERUM 0.4 mg/dL (0.6-1.3); GLUCOSE 94 mg/dL (74-106); PROTEIN - SERUM 6.4 g/dL (6.4-8.2); SODIUM 133 mmol/L (136-145); UREA NITROGEN 7 mg/dL (7-18); eGFR NON AFRICAN AMERICAN > 90 mL/min (90-120)
--- NOTE | 2020-01-29 07:53 | NUR ---
TO SURG PER BED. NO COMPLAINTS AT PRESENT. FAMILY AT BEDSIDE.
[2020-01-29 10:04] VITALS: BP 161/77
--- NOTE | 2020-01-29 10:08 | NUR ---
RETURNED FROM SURG PER BED. AWAKE AND ALERT BUT DRIFTS OFF TO SLEEP. OXYGEN AT 2L PER NC. RIGHT ARM IN JABARI WRAP AND SLING WITH ICE PACK NOTED. ABLE TO WIGGLE FINGERS ON RIGHT HAND. FINGERS PINK AND WARM. STATES NO PAIN AT PRESENT. CALL LIGHT IN REACH
[2020-01-29 10:19] LABS: EOSINOPHILS 1 % (0-7); LYMPHOCYTES 17 % (15-50); MONOCYTES 12 % (2-11); NEUTROPHILS 70 % (40-80); ROULEAUX OCC
[2020-01-29 10:24] LABS: PLATELET ESTIMATE NORMAL
--- NOTE | 2020-01-29 15:22 | OP ---
PATIENT NAME: BRIAN CORTEZ MEDICAL RECORD: [id number] :40 LOCATION:D[facility] ADMISSION DATE:01/27/20 SURGEON: DEEPAK EMERY DO DATE OF OPERATION: 01/29/2020 PROCEDURE PERFORMED: Right distal radius open reduction and internal fixation. PREOPERATIVE DIAGNOSIS: Right distal radius displaced fracture. POSTOPERATIVE DIAGNOSIS: Right distal radius displaced fracture. INDICATIONS: Mrs. Cortez is a 79-year-old female who fell on Tuesday night and has a right pubic ramus and sacral ala fracture as well as a distal radius fracture. I informed her that her distal radius needed to be fixed as it shows some dorsal comminution and displacement, and it was displaced enough that we needed to put a plate and screws on it. I informed her of the risks including infection, bleeding, damage to nerves, vessels, tendons also in the area, continued pain, malunion, nonunion and need for further surgery, and she is aware of that and she signed the consent. SURGEON: Deepak Emery DO DESCRIPTION OF PROCEDURE: The patient received a block by anesthesia in the preoperative area, taken to the operative suite. She had been given Rocephin on the floor for UTI and just received a dose. We did not do antibiotics or Ancef. When she was laid in supine position and sedated, LMA was placed. The time out was performed and everyone was in agreeance to the correct side, site, patient and procedure. She had been prepped and draped at that point. The right upper extremity was then expanded with an Esmarch, tourniquet was inflated to 250 mmHg, it was up for 25 minutes. I then began by making an incision over the flexor carpi radialis tendon, made careful dissection down through the tendon to the dorsal part of the sheath and then opened up to the distal radius, peeled off the pronator quadratus and then exposed the fracture. I then reduced the fracture manually and put a K-wire through the radial styloid to hold it in place and then put the Acumed plate on and once it was in good position put a shaft screw in, and sucking the plate down nicely. Then put 3 distal screws in, one into the radial styloid locking into the plate. I then put 2 more locking screws into the shaft and changed out the cortical screw that I had put in first in the shaft as it was too long. I changed it out to a 4-0 12-mm screw from the clavicle set. This had a good reduction and was not too prominent in order to get a good bite and get new fixation. AP and lateral x-rays were done, everything was in good position. Fracture was well reduced. The tourniquet was then let down. Any bleeding was coagulated with a pickup and Bovie by Christa Smith, certified surgical state tested nursing assistant. She then closed the site with 3-0 Vicryl in inverted interrupted fashion and Prineo glue placed on the knee incision. She was then dressed with Adaptic, 4 x 4s, cast padding and placed a 3 x 12 splint wrapped with an Torres wrap. She was awakened and taken to recovery room in stable condition. BLOOD LOSS: Minimal. COMPLICATIONS: None. TRANSINT:[id number] Voice Confirmation ID: [id number] DOCUMENT ID: [id number] OPERATIVE REPORT [id number] BRIAN CORTEZ MICHAEL D, DO at 1522 CC: [id number] DICTATION DATE: 01/29/20912 GRAVITY PROSPECTOR: 01/29/20 1517 ADM IN [facility] [address] [place] [address]
[2020-01-29 16:41] VITALS: BP 164/83
[2020-01-29 20:00] VITALS: BP 138/72
--- NOTE | 2020-01-29 21:00 | NUR ---
AWAKE. SITTING UP IN BED TALKING TO SPOUSE. ALERT AND ORIENTED X4. O2 @ 2L/NC. RESP NONLABORED. DENIES PAIN. RUE IN SLING. FINGERS ARE SWOLLEN. NO TELE AVAILABLE. TANG DRAINING CLEAR YELLOW URINE. SCDS IN USE BILAT. NS @ 75 ML/HR INFUSING IN LT AC. JABARI WRAP NOTED TO RUE. BED ALARM IN USE. CL IN REACH. NO DISTRESS.
--- NOTE | 2020-01-29 22:00 | NUR ---
MEDICATED WITH NORCO FOR C/O PAIN IN RUE RATING 5. CL IN REACH.
[2020-01-30] VITALS: BP 154/71
--- NOTE | 2020-01-30 03:26 | NUR ---
HAS RESTED WELL SO FAR THIS SHIFT. NO DISTRESS. SPOUSE AT BEDSIDE. CL IN REACH.
[2020-01-30 04:00] VITALS: BP 141/85
[2020-01-30 05:17] LABS: BASOPHILS 0.1 % (0-2); EOSINOPHILS 0 % (0-7); HEMATOCRIT 32.4 % (36.0-48.0); IMMATURE GRANULOCYTES 1.6 % (0-5); LYMPHOCYTES 8.6 % (15-50); MCH 29.4 pg (26.0-34.0); MCV 86.6 fL (80.0-100.0); MEAN PLATELET VOLUME 10.5 fL (7.4-10.4); MONOCYTES 18.6 % (2-11); NEUTROPHILS 71.1 % (40-80); PLATELET COUNT 186 10x3/uL (130-400); RBC 3.74 10x6/uL (4.00-5.40); RDW 13.5 % (11.5-14.5)
[2020-01-30 05:34] LABS: WBC 12.8 10x3/uL (4.8-10.8)
[2020-01-30 05:39] LABS: ALBUMIN 3.1 g/dL (3.4-5.0); ALKALINE PHOSPHATASE 82 U/L (30-120); ALT (SGPT) 27 U/L (10-68); BILIRUBIN - TOTAL 0.81 mg/dL (0.2-1.3); CALC OSMOLALITY 265 mosm/kg (275-300); CALCIUM 8.2 mg/dL (8.5-10.1); CARBON DIOXIDE 26.8 mmol/L (21.0-32.0); CHLORIDE - SERUM 100 mmol/L (98-107); CREATININE - SERUM 0.5 mg/dL (0.6-1.3); GLUCOSE 102 mg/dL (74-106); POTASSIUM - SERUM 3.5 mmol/L (3.5-5.1); PROTEIN - SERUM 6.7 g/dL (6.4-8.2); SODIUM 134 mmol/L (136-145); UREA NITROGEN 8 mg/dL (7-18); eGFR NON AFRICAN AMERICAN > 90 mL/min (90-120)
--- NOTE | 2020-01-30 07:15 | NUR ---
A&O RESTING IN BED WITH EYES OPEN. AT BEDSIDE. NO C/O PAIN. NO S/S OF ACUTE DISTRESS NOTED. ON BEDREST. POD #1 ORIF OF RIGHT RADIUS, SOFT CAST IN SLING. SWELLING OF RIGHT HAND/FINGERS. SCDS ON. BED ALARM ON. ON 2L O2, NC. IV TO LEFT AC CAME OUT. WILL RESITE IV. TANG CATHETER. BED ALARM AND SCDS ON. DENIES ANY NEEDS AT THIS TIME. CALL LIGHT IN REACH. WILL CONTINUE TO MONITOR.
[2020-01-30 08:38] VITALS: BP 155/68
[2020-01-30 12:41] VITALS: BP 140/76
[2020-01-30 17:00] VITALS: BP 162/72
--- NOTE | 2020-01-30 17:48 | NUR ---
OT NOTE: PT COMPLETED RUE PROM TO SHOULDER. PT COMPLETED LUE AROM EXS. PT COMPLETED RUE POSITIONING WITH MIN A. PT COMPLETED FACE HYGIENE WITH SETUP. [phone] THANK YOU,JOIN JAEGER
--- NOTE | 2020-01-30 18:30 | NUR ---
RESTING IN BED WITH EYES OPEN. NO C/O PAIN. NO S/S OF ACUTE DISTRESS NOTED. DENIES ANY NEEDS AT THIS TIME. AT BEDSIDE. CALL LIGHT IN REACH.
--- NOTE | 2020-01-30 19:50 | NUR ---
I have reviewed this patient and I concur with the Shift Assessment completed by the Licensed Practical Nurse today this shift.
[2020-01-30 20:00] VITALS: BP 121/63
[2020-01-31] VITALS: BP 116/62
--- NOTE | 2020-01-31 01:08 | NUR ---
PT RESTING IN BED. EYES CLOSED. NO SIGNS OF DISTRESS. BREATHING EVEN AND UNLABORED. 2LO2 NASAL CANNULA. LUNG SOUNDS CLEAR. BOWEL SOUND ACTIVE. RT ARM CAST PRESENT CLEAN DRY AND INTACT. SLING PRESENT TO RT ARM. TANG IN PLACE AND DRAINNING. WILL CONTINUE PLAN OF CARE. CALL LIGHT IN REACH. BED LOWERED AND LOCKED. BED RAILS UPX2. BED ALARM ON. AT BEDSIDE.
[2020-01-31 04:00] VITALS: BP 136/68
--- NOTE | 2020-01-31 04:41 | NUR ---
I have reviewed this patient and I concur with the Shift Assessment completed by the Licensed Practical Nurse today this shift.
[2020-01-31 06:00] LABS: HEMATOCRIT 32.7 % (36.0-48.0); MCH 29.2 pg (26.0-34.0); MCHC 33.6 g/dL (31.0-37.0); MCV 86.7 fL (80.0-100.0); MEAN PLATELET VOLUME 10.9 fL (7.4-10.4); PLATELET COUNT 220 10x3/uL (130-400); RBC 3.77 10x6/uL (4.00-5.40); RDW 13.7 % (11.5-14.5); WBC 9.6 10x3/uL (4.8-10.8)
[2020-01-31 06:20] LABS: ALBUMIN 2.8 g/dL (3.4-5.0); ALKALINE PHOSPHATASE 76 U/L (30-120); ALT (SGPT) 26 U/L (10-68); BILIRUBIN - TOTAL 0.66 mg/dL (0.2-1.3); CALC OSMOLALITY 266 mosm/kg (275-300); CALCIUM 8.1 mg/dL (8.5-10.1); CARBON DIOXIDE 29.3 mmol/L (21.0-32.0); CHLORIDE - SERUM 101 mmol/L (98-107); CREATININE - SERUM 0.5 mg/dL (0.6-1.3); GLUCOSE 98 mg/dL (74-106); POTASSIUM - SERUM 3.5 mmol/L (3.5-5.1); PROTEIN - SERUM 6.2 g/dL (6.4-8.2); SODIUM 134 mmol/L (136-145); eGFR NON AFRICAN AMERICAN > 90 mL/min (90-120)
[2020-01-31 06:21] LABS: UREA NITROGEN 11 mg/dL (7-18)
--- NOTE | 2020-01-31 07:05 | NUR ---
A&O RESTING IN BED WITH EYES OPEN. NO C/O PAIN. NO S/S OF ACUTE DISTRESS NOTED. POD #2 ORIF RIGHT WRIST, SLING AND SOFT CAST. BED ALARM ON. SCDS ON. ON 2L O2, NC. TANG CATHETER. IV TO LEFT FOREARM, NS INFUSING @ 50ML/HR. SITE PATENT WITHOUT REDNESS OR SWELLING. DENIES ANY NEEDS AT THIS TIME. CALL LIGHT IN REACH. WILL CONTINUE TO MONITOR.
--- NOTE | 2020-01-31 07:45 | NUR ---
AT BEDSIDE. PATIENT IS AWAKE AND IS ON TABLET. PATIENT IS WITHOUT DISTRESS
[2020-01-31 08:00] VITALS: BP 115/64
--- NOTE | 2020-01-31 09:53 | NUR ---
Rehab Note- Acute Inpatient Rehab prescreen order received. The patient is a good inpatient rehab candidate if in agreeance to come to [facility] Acute Inpatient Rehab stay. Will follow at this time. Thank you for this referral! Esme Gomez RN Clinical Liaison, [facility] Rehab
[2020-01-31 10:18] LABS: LYMPHOCYTES 23 % (15-50); MONOCYTES 23 % (2-11); NEUTROPHILS 53 % (40-80); PLATELET ESTIMATE NORMAL; ROULEAUX OCC
[2020-01-31] MEDS ORDERED: FLORAJEN3 CAPS460 MG PO (11:57)
[2020-01-31] MEDS ORDERED: HYDROCODON-ACE1 EAC7 PO (11:57)
[2020-01-31] MEDS ORDERED: PROTONIX40 MG PO (11:57)
[2020-01-31 12:00] VITALS: BP 140/74
--- NOTE | 2020-01-31 12:33 | MORECARE ---
CASE MANAGEMENT DISCHARGE SUMMARY PATIENT: BRIAN PALACIO UNIT: [id number] ADM DATE: 01/27/20 AGE: 79 : 40 SEX: F ROOM/BED: D.2234 AUTHOR: JOSE LUISDOC PHYSICIAN: REFERRING PHYSICIAN: KATTY MERCER MD DATE OF SERVICE: 01/31/20 Discharge Plan Patient Name: BRIAN PALACIO Facility: [facility]:[place] : 1940 Planned Disposition: Inpatient Rehab Anticipated Discharge Date: Discharge Date: Expected LOS: Initial Reviewer: [email or web address] Initial Review Date: 01/31/2020 Generated: 01/31/20 1:32 pm Comments DCP- Discharge Planning Updated by [email or web address]: Krissy Noble on 01/31/20 11:[address] Patient Name: BRIAN PALACIO Admission Status: ER Accout number: [id number] Admission Date: 01-27-2020 : 1940 Admission Diagnosis: Attending: KATTY MERCER Current LOS: 4 Anticipated DC Date: Planned Disposition: Inpatient Rehab Primary Insurance: MEDICARE A & B Discharge Planning Comments: CM met with patient at bedside after explaining CM role and obtaining verbal consent. CM discussed availability / needs of home health, REHAB and medical equipment. INTERESTED IN IPRH AT [facility], [facility] AND [facility] SIGNED. ANTICIPATE DC TO INPATIENT REHAB TODAY IF OKAY WITH DOCTORS. CM TO FOLLOW AND ASSIST NEEDED. Solar Energy Consultant And Designer: Krissy Noble DCPIA - Discharge Planning Initial Assessment Updated by [email or web address]: Krissy Noble on 01/31/20 12:25 pm * Is the patient Alert and Oriented? Yes * Preadmission Environment Home with Family * ADLs Independent * Additional services required to return to the preadmission environment? Yes * Can the patient safely return to the preadmission environment? Yes * Has this patient been hospitalized within the prior 30 days at any hospital? No Coverage Notice Reviewer: [id number] Daniela Noble Notice Issued Date-Time: 01/31/2020 12:26 Notice Type: IM Discharge Notice Notice Delivered To: Relationship to Patient: Warehouse Person Name: Delivery Method: - Lashon Days: Prior Verbal Notification: Recipient Understood Notice: Recipient Signature: Med Rec Note Co-signed by Attending: Coverage Notice Comment: Reviewer: [email or web address] Daniela Noble Notice Issued Date-Time: 01/31/2020 12:26 Notice Type: Patient Choice Letter Notice Delivered To: Patient Relationship to Patient: Warehouse Person Name: Delivery Method: HAND - Hand Delivered Lashon Days: Prior Verbal Notification: Recipient Understood Notice: Yes Recipient Signature: Yes Med Rec Note Co-signed by Attending: Coverage Notice Comment: [facility] Patient Name: BRIAN PALACIO Page [phone] at 1233 All edits/amendments must be made on the electronic document DICTATION DATE: 01/31/20 1232 BUSINESS SOLUTION ANALYST: SD 01/31/20 1232 RPT#: [id number] DC DATE: STATUS: ADM IN [facility] [address] [place] [address] END OF REPORT
--- NOTE | 2020-01-31 14:29 | NUR ---
OT NOTE:PT COMPLETED RUE PROM AND LUE AROM . PT COMPLETED FACE HYGIENE WITH SETUP. PT COMPLETED BED MOB WITH MIN A. [phone] THANK YOU,JONI JAEGER
--- NOTE | 2020-01-31 17:10 | NUR ---
DISCHARGED PATIENT TO INPATIENT REHAB VIA BED. DISCONTINUED TANG CATHETER AND PERIPHERAL IV, CATHETER TIP INTACT. WENT OVER DISCHARGE INSTRUCTIONS WITH PATIENT AND SPOUSE, VERBALIZED UNDERSTANDING. DENIES ANYTHING FURTHER.
--- NOTE | 2020-02-02 09:31 | MORECARE ---
CASE MANAGEMENT DISCHARGE SUMMARY PATIENT: BRIAN PALACIO UNIT: [id number] ADM DATE: 01/27/20 AGE: 79 : 40 SEX: F ROOM/BED: D.2234 AUTHOR: JOSE LUISDOC PHYSICIAN: REFERRING PHYSICIAN: KATTY MERCER MD DATE OF SERVICE: 02/02/20 Discharge Plan Patient Name: BRIAN PALACIO Facility: [facility]:[place] : 1940 Planned Disposition: Inpatient Rehab Anticipated Discharge Date: Discharge Date: 01/31/2020 Expected LOS: Initial Reviewer: [email or web address] Initial Review Date: 01/31/2020 Generated: 02/02/20 10:31 am Comments DCP- Discharge Planning Updated by [email or web address]: Krissy Noble on 01/31/20 11:[address] Patient Name: BRIAN PALACIO Admission Status: ER Accout number: [id number] Admission Date: 01-27-2020 : 1940 Admission Diagnosis: Attending: KATTY MERCER Current LOS: 4 Anticipated DC Date: Planned Disposition: Inpatient Rehab Primary Insurance: MEDICARE A & B Discharge Planning Comments: CM met with patient at bedside after explaining CM role and obtaining verbal consent. CM discussed availability / needs of home health, REHAB and medical equipment. INTERESTED IN [facility] AT [facility], [facility] AND [facility] SIGNED. ANTICIPATE DC TO INPATIENT REHAB TODAY IF OKAY WITH DOCTORS. CM TO FOLLOW AND ASSIST NEEDED. Manager Web Application: Krissy Noble DCPIA - Discharge Planning Initial Assessment Updated by [email or web address]: Krissy Noble on 01/31/20 12:25 pm * Is the patient Alert and Oriented? Yes * Preadmission Environment Home with Family * ADLs Independent * Additional services required to return to the preadmission environment? Yes * Can the patient safely return to the preadmission environment? Yes * Has this patient been hospitalized within the prior 30 days at any hospital? No Coverage Notice Reviewer: [email or web address] - Krissy Noble Notice Issued Date-Time: 01/31/2020 12:26 Notice Type: IM Discharge Notice Notice Delivered To: Relationship to Patient: Corrective And Manual Arts Therapist Name: Delivery Method: - Lashon Days: Prior Verbal Notification: Recipient Understood Notice: Recipient Signature: Med Rec Note Co-signed by Attending: Coverage Notice Comment: Reviewer: [email or web address] Daniela Noble Notice Issued Date-Time: 01/31/2020 12:26 Notice Type: Patient Choice Letter Notice Delivered To: Patient Relationship to Patient: Corrective And Manual Arts Therapist Name: Delivery Method: HAND - Hand Delivered Lashon Days: Prior Verbal Notification: Recipient Understood Notice: Yes Recipient Signature: Yes Med Rec Note Co-signed by Attending: Coverage Notice Comment: [facility] Last DP export: 01/31/20 11:33 am Patient Name: BRIAN PALACIO Page [phone] at 0931 All edits/amendments must be made on the electronic document DICTATION DATE: 02/02/20930 ASSISTANT FARM OPERATIONS MANAGER: SD 02/02/20930 RPT#: [id number] DC DATE:01/31/20 STATUS: DIS IN [facility] [address] [place] [address] END OF REPORT
== END 2020-01-31 17:11 | DRG 511 ==
LOC: D.ER 19:06 → D.MS 20:11
PROVIDERS: Family Medicine; Family Medicine Adult Medicine; Orthopaedic Surgery; ADMIT Family Medicine; ATTEND Family Medicine
PROC: 0PSH04Z Reposition Right Radius with Internal Fixation Device, Open Approach (ICD-10-PCS; principal; 2020-01-29 17:45)
DX: S52.501A Unspecified fracture of the lower end of right radius, initial encounter for closed fracture (principal); S32.511A Fracture of superior rim of right pubis, initial encounter for closed fracture; S32.10XA Unspecified fracture of sacrum, initial encounter for closed fracture; W19.XXXA Unspecified fall, initial encounter; Z86.73 Personal history of transient ischemic attack (TIA), and cerebral infarction without residual deficits; I10 Essential (primary) hypertension; J30.9 Allergic rhinitis, unspecified; D64.9 Anemia, unspecified

== ENCOUNTER 2020-01-31 17:24 | Inpatient (IN) | payer MEDICARE, BC ==
[~2020-01-31] VITALS: Ht 167.6 cm; Wt 59.4 kg
[~2020-01-31 17:24] MED LIST changes: +BISOPROLOL FUMAR5 MG PO; +FLORAJEN3 CAPS460 MG PO; +HYDROCODON-ACE1 EAC7 PO; +MULTI-DAY VITAM1 TAB PO; +NORVASC5 MG PO; +PROTONIX40 MG PO
--- NOTE | 2020-01-31 19:45 | NUR ---
AWAKE AND ALERT. ASSISTED TO BATHROOM. RESPIRAITONS UNLABORED. CAST INTACT TO RIGHT WRIST. ADMITTED HERE FOR PHYSICAL REHAB AND SERVICES OF DR MENDEZ. SEE ADMISSION ASSESSMENT.
[2020-01-31 21:48] VITALS: BP 125/72
[2020-01-31 22:21] VITALS: BP 125/72; BMI 21.1
--- NOTE | 2020-02-01 00:54 | NUR ---
SLEEPING WITH RESPIRATIONS UNLABORED. IN ROOM. NO DISTRESS NOTED.
--- NOTE | 2020-02-01 05:24 | NUR ---
QUIET HOURS. NO ACUTE CHANGES IN CONDITION THIS SHIFT. RESTING IN BED WITH AT BEDSIDE.
[2020-02-01 06:43] LABS: BASOPHILS 0.3 % (0-2); EOSINOPHILS 1.1 % (0-7); HEMATOCRIT 34.7 % (36.0-48.0); HEMOGLOBIN 11.6 g/dL (12-16); IMMATURE GRANULOCYTES 1.7 % (0-5); LYMPHOCYTES 25.5 % (15-50); MCH 29.1 pg (26.0-34.0); MCHC 33.4 g/dL (31.0-37.0); MCV 87.2 fL (80.0-100.0); MEAN PLATELET VOLUME 10.3 fL (7.4-10.4); MONOCYTES 18.8 % (2-11); NEUTROPHILS 52.6 % (40-80); PLATELET COUNT 245 10x3/uL (130-400); RBC 3.98 10x6/uL (4.00-5.40); RDW 13.7 % (11.5-14.5)
[2020-02-01 06:44] LABS: WBC 7.1 10x3/uL (4.8-10.8)
[2020-02-01 07:01] LABS: CALC OSMOLALITY 276 mosm/kg (275-300); CALCIUM 8.6 mg/dL (8.5-10.1); CARBON DIOXIDE 30.1 mmol/L (21.0-32.0); CHLORIDE - SERUM 103 mmol/L (98-107); CREATININE - SERUM 0.6 mg/dL (0.6-1.3); GLUCOSE 97 mg/dL (74-106); POTASSIUM - SERUM 3.3 mmol/L (3.5-5.1); SODIUM 139 mmol/L (136-145); UREA NITROGEN 11 mg/dL (7-18); eGFR NON AFRICAN AMERICAN > 90 mL/min (90-120)
[2020-02-01 08:00] VITALS: BP 165/78
[2020-02-01 13:48] VITALS: Ht 167.6 cm; Wt 59.4 kg
--- NOTE | 2020-02-01 19:32 | NUR ---
AWAKE AND ALERT. RESPIRATIONS UNLABORED. ASSISTED TO USE BEDPAN. REPOSITIONED FOR COMFORT. NO DISTRESS NOTED. CAST IN PLACE TO RIGHT LOWER ARM/WRIST. AT BEDSIDE.
[2020-02-01 19:42] VITALS: BP 125/68
--- NOTE | 2020-02-02 01:32 | NUR ---
RESTING IN BED WITH EYES CLOSED AND RESPIRATIONS UNLABORED. NO DISTRESS NOTED.
--- NOTE | 2020-02-02 05:37 | NUR ---
QUIET HOURS. NO ACUTE CHANGES IN CONDITION THIS SHIFT. CAST INTACT TO RIGHT WRIST AREA. MEDICATED FOR PAIN. SEE MAR. AT BEDSIDE.
--- NOTE | 2020-02-02 07:19 | NUR ---
PT IN THERAPY AT PRESENT TIME. REQUESTED PAIN PILL AND EXPLAINED IT WAS NOT YET TIME FOR IT AND STATED SHE COULD MAKE IT WITHOUT IT RIGHT NOW. NO OTHER REQUESTS. CAST IN PLACE RIGHT ARM AND FINGERTIPS WARM TO TOUCH.
[2020-02-02 08:46] VITALS: BP 120/74
--- NOTE | 2020-02-02 15:34 | NUR ---
I have reviewed this patient and I concur with the Shift Assessment completed by the Licensed Practical Nurse today this shift.
[2020-02-02 19:57] VITALS: BP 118/64
--- NOTE | 2020-02-02 20:04 | NUR ---
AWAKE AND ALERT. RESTING IN BED WITH RESPIRAITONS UNLABORED. CAST INTACT TO RIGHT LOWER ARM/WRIST. NO DISTRESS NOTED. AT BEDSIDE.
--- NOTE | 2020-02-02 22:30 | NUR ---
MEDICATED FOR C/O PAIN. SEE MAR. AT BEDSIDE.
--- NOTE | 2020-02-03 00:15 | NUR ---
EYES CLOSED AND RESPIRAITONS UNLABORED. CAST TO RIGHT HAND INTACT. CALL LIGHT IN REACH. IN ROOM.
--- NOTE | 2020-02-03 02:35 | NUR ---
CONTINUES SLEEPING WITH NO DISTRESS NOTED.
--- NOTE | 2020-02-03 05:30 | NUR ---
QUIET HOURS. NO ACUTE CHANGES IN CONDITION THIS SHIFT. RESTING IN BED WITH NO DISTRESS NOTED.
--- NOTE | 2020-02-03 08:37 | NUR ---
PT RESTING IN BED WITH EYES OPEN CALL LIGHT IN REACH WILL MONITER
[2020-02-03 11:39] VITALS: BP 139/67
--- NOTE | 2020-02-03 17:18 | NUR ---
I have reviewed this patient and I concur with the Shift Assessment completed by the Licensed Practical Nurse today this shift.
--- NOTE | 2020-02-03 18:00 | NUR ---
PT UP IN WHEELCHAIR CALL LIGHT IN REACH WILL MONITER
[2020-02-03 19:55] VITALS: BP 118/67
--- NOTE | 2020-02-03 20:03 | NUR ---
AWAKE AND ALERT. SITTING IN WHEELCHAIR BUT REQUEST TO GO TO BED. ASSISTED TO BED. HAS PAIN IN PELVIS WITH MOVEMENT. CAST INTACT TO RIGHT WRIST. RESPIRAITONS UNLABORED. AT BEDSIDE
--- NOTE | 2020-02-03 23:07 | NUR ---
RESTING IN BED WITH EYES CLOSED AND RESPIRAITONS UNLABORED. NO DISTRESS NOTED.
--- NOTE | 2020-02-04 01:30 | NUR ---
SLEEPING WITH RESPIRAITONS UNLABORED. NO DISTRESS NOTED.
--- NOTE | 2020-02-04 05:04 | NUR ---
QUIET HOURS. NO ACUTE CHANGES IN CONDITION THIS SHIFT. RESTING IN BED WITH NO DISTRESS NOTED. RESPIRATIONS UNLABORED. IN ROOM.
[2020-02-04 07:16] LABS: CALC OSMOLALITY 276 mosm/kg (275-300); CALCIUM 9.1 mg/dL (8.5-10.1); CARBON DIOXIDE 30.8 mmol/L (21.0-32.0); CHLORIDE - SERUM 101 mmol/L (98-107); CREATININE - SERUM 0.5 mg/dL (0.6-1.3); GLUCOSE 93 mg/dL (74-106); POTASSIUM - SERUM 3.7 mmol/L (3.5-5.1); SODIUM 138 mmol/L (136-145); UREA NITROGEN 15 mg/dL (7-18); eGFR NON AFRICAN AMERICAN > 90 mL/min (90-120)
--- NOTE | 2020-02-04 07:18 | NUR ---
RESTING WO C/O PAIN. NO DISTRESS NOTED. CL IN REACH.
[2020-02-04 07:50] LABS: HEMATOCRIT 35.4 % (36.0-48.0); HEMOGLOBIN 12.2 g/dL (12-16); LYMPHOCYTES 20.3 % (15-50); MCH 30.6 pg (26.0-34.0); MCHC 34.5 g/dL (31.0-37.0); MCV 88.7 fL (80.0-100.0); MEAN PLATELET VOLUME 10.4 fL (7.4-10.4); NEUTROPHILS 60.7 % (40-80); PLATELET COUNT 260 10x3/uL (130-400); RBC 3.99 10x6/uL (4.00-5.40); RDW 13.5 % (11.5-14.5); WBC 5.4 10x3/uL (4.8-10.8)
[2020-02-04 08:03] VITALS: BP 130/76
--- NOTE | 2020-02-04 10:49 | NUR ---
PARTICIPATED IN THERAPY THIS AM.
--- NOTE | 2020-02-04 12:36 | NUR ---
PATIENT ADMITTED TO REHAB FROM ACUTE FLOOR. SHE HAS NO PCP . DME AT HOME IS A CANE AND A WALKER. DISCHARGE PLANS ARE FOR HER TO RETURN BACK TO HER HOME. WILL CONTINUE TO FOLLOW WITH PATIENT.
--- NOTE | 2020-02-04 14:40 | NUR ---
NO CHANGE IN ASSESSMENT. IN ROOM. NO DISTRESS NOTED.
--- NOTE | 2020-02-04 16:18 | NUR ---
Nutrition Follow-up: Chart reviewed. On electrolyte protocol per MD notes. Diet: Regular PO intake: ~86% average x last 7 meals. She reports that her appetite is "good." She states that she has been constipated but that she had a BM yesterday after being given miralax and dulcolax. She wants prunes on her meal trays. She is ordering and drinking 1 Ensure per day. Last BM: Yesterday - per patient report. WT: 131# (02/01/20) Meds and labs reviewed. Recommend continue current diet. Will order requested prunes. RD following.
--- NOTE | 2020-02-04 19:38 | NUR ---
RECEIVED PT SITTING UP IN W/C. ASSISTED PT WITH TRANSFER FROM W/C TO BED MOD ASSIST. C/O MILD DISCOMFORT IN LOWER BACK. DENIES ANY NEED FOR PAIN MEDICATION. FENTYNL PATCH 12.5MCG TO LEFT UPPER ARM. RIGHT ARM CAST INTACT. SHIFT ASSESSMENT COMPLETE. IN ROOM WITH PT AND ASSIST WITH NEEDS. CALL LIGHT AND WATER WITHIN REACH. FALL PRECAUTIONS IN PLACE. CPOC
[2020-02-04 20:26] VITALS: BP 116/68
--- NOTE | 2020-02-05 01:31 | NUR ---
PT LYING IN BED SUPINE EYES CLOSED RESTING QUIETLY. HOB ELEVATED. RR EVEN AND UNLABORED. ASLEEP IN ROOM. CALL LIGHT WITHIN REACH. FALL PRECAUTIONS IN PLACE. CPOC
--- NOTE | 2020-02-05 04:21 | NUR ---
PT LYING IN BED SUPINE EYES CLOSED RESTING QUIETLY. HOB ELEVATED. RR EVEN AND UNLABORED. ASLEEP AT BEDSIDE. CALL LIGHT WITHIN REACH. FALL PRECAUTIONS IN PLACE. CPOC
--- NOTE | 2020-02-05 05:51 | NUR ---
PT ON EP NO LABS DRAWN TODAY
--- NOTE | 2020-02-05 06:56 | NUR ---
RESTING WO DISTRESS. RESP EVEN AND UNLABORED.CL IN REACH.
[2020-02-05 07:55] VITALS: BP 113/60
--- NOTE | 2020-02-05 11:51 | NUR ---
PARTICIPATING IN THERAPY TODAY. SITTING UP IN CHAIR IN ROOM AT THIS TIME.
--- NOTE | 2020-02-05 15:23 | NUR ---
NO CHANGE IN ASSESSMENT. RESTING IN ROOM WO C/O PAIN. CL IN REACH.
--- NOTE | 2020-02-05 18:31 | NUR ---
SITTING IN CHAIR. IN ROOM. RESP EVEN AND UNLABORED. CL IN REACH.
[2020-02-05 19:00] VITALS: BP 102/58
--- NOTE | 2020-02-05 19:39 | NUR ---
HELPED PT TO BED, IN ROOM, PLEASANT, INTRODUCED SELF, NO NEEDS NOTED, FALL PRECAUTIONS IN PLACE, FLUIDS/CALL LIGHT WITHIN REACH
--- NOTE | 2020-02-06 00:46 | NUR ---
PT ASLEEP, AROUSES EASILY TO VOICE, NO NEEDS NOTED, FALL PRECAUTIONS IN PLACE, FLUIDS/CALL LIGHT WITHIN REACH
[2020-02-06 06:03] LABS: CALC OSMOLALITY 277 mosm/kg (275-300); CALCIUM 8.8 mg/dL (8.5-10.1); CARBON DIOXIDE 31.5 mmol/L (21.0-32.0); CHLORIDE - SERUM 103 mmol/L (98-107); CREATININE - SERUM 0.6 mg/dL (0.6-1.3); GLUCOSE 88 mg/dL (74-106); POTASSIUM - SERUM 3.8 mmol/L (3.5-5.1); SODIUM 139 mmol/L (136-145); UREA NITROGEN 15 mg/dL (7-18); eGFR NON AFRICAN AMERICAN > 90 mL/min (90-120)
[2020-02-06 06:33] LABS: HEMOGLOBIN 10.5 g/dL (12-16); LYMPHOCYTES 28.1 % (15-50); MCHC 33.9 g/dL (31.0-37.0); MCV 88.6 fL (80.0-100.0); MEAN PLATELET VOLUME 10.4 fL (7.4-10.4); NEUTROPHILS 51.1 % (40-80); PLATELET COUNT 309 10x3/uL (130-400); RDW 13.4 % (11.5-14.5); WBC 5.6 10x3/uL (4.8-10.8)
--- NOTE | 2020-02-06 08:00 | NUR ---
SHIFT ASSMT COMPLETED.CL IN REACH.BREAKFAST GIVEN.
--- NOTE | 2020-02-06 15:03 | NUR ---
CARE TEAM MEETING: PATIENT IS PROGRESSING IN THERAPY. HER TENATIVE DISCHARGE DATE IS 02/15/20. WILL CONTINUE TO FOLLOW WITH PATIENT.
--- NOTE | 2020-02-06 19:17 | NUR ---
PT IN BED WATCHING TV, PT STATES NO BM REQUESTING MIRALAX WITH MEDS, IN ROOM, NO OTHER NEEDS NOTED, FALL PRECAUTIONS IN PLACE, FLUIDS/CALL LIGHT WITHIN REACH
[2020-02-06 21:29] VITALS: BP 119/61
--- NOTE | 2020-02-07 03:11 | NUR ---
PT ASLEEP AROUSES EASILY TO VOICE, NO NEEDS NOTED, FALL PRECAUTIONS IN PLACE, FLUIDS/CALL LIGHT WITHIN REACH
--- NOTE | 2020-02-07 07:53 | RHP ---
PATIENT: BRIAN PALACIO MEDICAL RECORD: [id number] ACCOUNT: [id number] LOCATION:[facility] : [birth year] ADMISSION DATE: 01/31/20 REHABILITATION HISTORY AND PHYSICAL EXAMINATION POST ADMISSION PHYSICIAN EXAMINATION DATE OF ADMISSION: 01/31/2020 ADMITTING DIAGNOSIS: Pelvic ramus fracture. HISTORY OF PRESENT ILLNESS: The patient is a female patient who is 79 years of age. She presented to the ED with complaints of right groin pain and right-sided pain and swelling after sustaining a fall an hour prior to arrival. She was sitting in a wheelchair, was going to get up and forgot to lock the wheel, she said when she stood up she lost her balance, fell on to her right side. She is normally ambulatory with a cane. She says she was just using a wheelchair because of the height, it was convenient for her to sit. She denied any other symptoms, any dizziness, chest pain, shortness of breath or any other problems. The patient was admitted to the medical floor with hyponatremia, metabolic encephalopathy, anemia due to acute blood loss, fracture of pubic ramus, a distal radius fracture. The patient had a consult from orthopedic surgery. She had an open reduction internal fixation of her right distal radial fracture by Dr. Sanchez, requiring pain control. She is weightbearing as tolerated. Prior to the fall, she was independent with a cane, living independently with her at home. She is currently max assist with ambulation on chronic platform walker to ambulate 2 feet with max assist with ADL. She will require intensive therapy, DVT prophylaxis. She will have to return back to as closely as she can to an independent level to get home. She is currently been monitored closely for her lab values, cognition, medication adjustment, monitoring her pain control. She has got decreased strength, proximal muscle weakness, balance deficits, decreased activity tolerance, decreased range of motion, impaired mobility and dyspnea on exertion and she has a high fall risk and self-care deficits. These are all barriers to her discharge home. COMORBIDITIES: Include asthma, hypertension, atrial fib, sacral ala fracture. She has got right distal radius fracture, acute metabolic encephalopathy, acute blood loss anemia, hyponatremia, functional quadriplegia, history of TIA, cataracts and sinus problems. PAST MEDICAL HISTORY: Significant for cataracts, sinus problems, got a history of atrial fib. PAST SURGICAL HISTORY: Includes hysterectomy, wrist fracture. She has got a history of femur fracture. ALLERGIES: SULFA, EUCALYPTUS, AND APRICOTS. CURRENT MEDICATIONS: Include amlodipine 5 mg daily, Floranex daily. She is on multivitamin daily. She is on Zebeta 10 mg daily, losartan 100 mg daily, Os-Juni D 500 mg daily, aspirin 81 mg daily, Protonix 40 mg daily. She is on an electrolyte protocol at this time for replacement of potassium and magnesium. She is on [place] 5/325 one tab q.4 hours p.r.n. HABITS: She does have a history of social use of alcohol. No tobacco use. HISTORY AND PHYSICAL [id number] BRIAN PALACIO FAMILY HISTORY: Noncontributory. SOCIAL HISTORY: The patient hopes to return back home and get back to her prior level of functioning. REVIEW OF SYSTEMS: GENERAL: Does complain of some weakness and fatigue. HEENT: Denies cold, cough, or congestion. CARDIOVASCULAR: Denies any chest pain. PHYSICAL EXAMINATION: VITAL SIGNS: Stable, afebrile. GENERAL: A well-developed elderly female, in no acute distress upon exam. HEENT: Normocephalic and atraumatic. Mucosa moist. TMs appear shiny and mobile. NECK: Supple. No lymphadenopathy. LUNGS: Clear at this time in upper kumar. HEART: Irregular rate and rhythm. ABDOMEN: Soft, benign, and nondistended. Positive bowel sounds times 4. EXTREMITIES: No clubbing, cyanosis. She does have a postop swelling that appears normal. NEUROLOGIC: She does have proximal muscle weakness. LABORATORY DATA: White count 7.1, H&H of 11.6 and 34.7, and platelet count is 245. Sodium 139, potassium 3.3, BUN and creatinine of 11 and 0.6 and blood sugar is noted to be 97. ASSESSMENT: This is a 79-year-old female patient admitted to rehab with a working diagnosis of pelvic fractures. The patient has potential to make improvement. We instituted the following multidisciplinary therapies including, but not limited to physical, occupational, respiratory, speech, nutritional services, prosthetics and orthotics. Given her complex medical condition and risk for more complications, rehabilitation services cannot be provided at a low level of care such as intermediate facility. PLAN: [facility]. [facility] to include the following disciplines; A. Physical therapy to improve gait, all transfer skills and bed mobility to a modified independent level. B. Occupational therapy to improve activities of living. C. Case management to help with placement options. D. Nutrition to help with any type of nutritional needs. E. Rehabilitation nursing to help with any type of bowel or bladder training and to help with any type of ambulation in this patient. 2. The patient's current medication and medical care will be continued. 3. The patient will be placed on standard fall precautions. 4. The patient will be reevaluated in the a.m. 5. The patient will be followed up again with the care team next week. TRANSINT:[id number] Voice Confirmation ID: [id number] DOCUMENT ID: [id number] [facility] notes whether there has been none or any medical/functional HISTORY AND PHYSICAL [id number] BRIAN PALACIO change since admission: - No change since prescreen. [facility]NA attests patient continues to be appropriate for IRF: - Continues to be appropriate. JANAE MENDEZ MD at 0753 CC: [id number] DICTATION DATE: 02/01/20 0834 FEEDLOT MANAGER: 02/01/20 0949 ADM IN [facility] [address] [place] [id number]
--- NOTE | 2020-02-07 08:00 | NUR ---
SHIFT ASSMT COMPLETED
--- NOTE | 2020-02-07 18:20 | NUR ---
RECEIVED PT SITTING UP IN BED VISITING WITH . ALERT AND ORIENTED X4. DENIES ANY NEEDS OR PAIN. NO SIGNS OF ACUTE DISTRESS NOTED. CALL LIGHT AND WATER WITHIN REACH. FALL PRECAUTIONS IN PLACE. CPOC
[2020-02-07 19:00] VITALS: BP 135/73
--- NOTE | 2020-02-08 02:14 | NUR ---
PT LYING IN BED EYES CLOSED RESTING QUIETLY. HOB ELEVATED. RR EVEN AND UNLABORED. CALL LIGHT WITHIN REACH. FALL PRECAUTIONS IN PLACE. CPOC
--- NOTE | 2020-02-08 03:50 | NUR ---
ASSISTED PT TO RESTROOM AND BACK TO BED WITH MIN ASSIST. DENIES ANY OTHER NEEDS OR PAIN. NO SIGNS OF ACUTE DISTRESS NOTED. IN ROOM ASLEEP. CALL LIGHT WITHIN REACH. FALL PRECAUTIONS IN PLACE. CPOC
[2020-02-08 06:06] LABS: CALC OSMOLALITY 275 mosm/kg (275-300); CALCIUM 8.6 mg/dL (8.5-10.1); CARBON DIOXIDE 30.8 mmol/L (21.0-32.0); CHLORIDE - SERUM 103 mmol/L (98-107); CREATININE - SERUM 0.7 mg/dL (0.6-1.3); GLUCOSE 92 mg/dL (74-106); POTASSIUM - SERUM 3.2 mmol/L (3.5-5.1); SODIUM 138 mmol/L (136-145); UREA NITROGEN 13 mg/dL (7-18); eGFR NON AFRICAN AMERICAN 85 mL/min (90-120)
[2020-02-08 07:29] LABS: LYMPHOCYTES 21.7 % (15-50); MCH 29.7 pg (26.0-34.0); MCHC 33.3 g/dL (31.0-37.0); MEAN PLATELET VOLUME 10.4 fL (7.4-10.4); NEUTROPHILS 56.3 % (40-80); PLATELET COUNT 295 10x3/uL (130-400); RBC 3.37 10x6/uL (4.00-5.40); RDW 13.5 % (11.5-14.5); WBC 4.8 10x3/uL (4.8-10.8)
--- NOTE | 2020-02-08 07:37 | NUR ---
ASSISTED UP TO BR VIA W/C, TOLERATED WELL. DENIES ANY PROBLEMS OR PAIN AT THIS TIME. RESP EVEN AND UNLABORED ON RA WITH NO DISTRESS NOTED. REMAINS UP IN W/C WITH CALL LIGHT AND FLUIDS IN REACH. NO REQUESTS VOICED.
[2020-02-08 08:46] VITALS: BP 99/56
[2020-02-08 11:39] VITALS: BP 117/76
--- NOTE | 2020-02-08 15:30 | NUR ---
ASSISTED UP TO BY VIA W/C FOR SHOWER AND SHAMPOO. PT TOLERATED WELL WITH NO C/O ANY PAIN.
--- NOTE | 2020-02-08 16:18 | NUR ---
ASSISTED UP TO SHOWER AND DID WELL WITH MIN ASST.
--- NOTE | 2020-02-08 19:50 | NUR ---
PATIENT RECEIVED SITTING UP IN BED. AT BEDSIDE. ASSESSMENT & VITAL SIGNS DONE. BED LOW. ALARM ON. CALL LIGHT WITHIN REACH. WILL CONTINUE TO MONITOR.
[2020-02-08 20:08] VITALS: BP 126/61
--- NOTE | 2020-02-08 21:05 | NUR ---
PATIENT USED CALL LIGHT FOR ASSIST. MINIMAL ASSIST INTO & OUT OF WHEELCHAIR. VOID ONLY. PATIENT RETURNED TO LOW BED. IN BED NEXT TO PATIENT. CALL LIGTH WITHIN REACH. WILL CONTINUE TO MONITOR.
--- NOTE | 2020-02-09 00:22 | NUR ---
PATIENT USED CALL LIGHT FOR ASSIST. PATIENT MINIMAL ASSIST INTO & OUT OF WHEELCHAIR. PATIENT HAD VOID ONLY. RETURNED TO LOW BED. CALL LIGHT WITHIN REACH. WILL CONTINUE TO MONITOR.
--- NOTE | 2020-02-09 03:41 | NUR ---
PATIENT USED CALL LIGHT FOR ASSIST. PATIENT MINIMAL ASSIST INTO & OUT OF WHEELCHAIR. PATIENT TAKEN TO BATHROOM. VOID ONLY. PATIENT RETURNED TO LOW BED. MINIMAL ASSIST. PATIENT AWAKE & WATCHING CARE. PATIENT CALL LIGHT WITHIN REACH. ALARM ON. CALL LIGHT WITHIN REACH. WILL CONTINUE TO MONITOR.
--- NOTE | 2020-02-09 07:24 | NUR ---
PT LAYING IN BED QUIETLY, NO NEEDS VERBALIZED, FALL PRECAUTIONS IN PLACE, FLUIDS/CALL LIGHT WITHIN REACH, IN ROOM
[2020-02-09 10:16] VITALS: BP 99/52
--- NOTE | 2020-02-09 11:35 | NUR ---
HOLDING [facility] FOR TODAY BP 99/52 DR. MENDEZ AWARE
--- NOTE | 2020-02-09 19:30 | NUR ---
PATIENT RECEIVED SITTING UP IN BED. AT BEDSIDE. ASSESSMENT & VITAL SIGNS DONE. NO C/O PAIN OR DISTRESS. BED LOW. ALARM ON. CALL LIGHT WITHIN REACH. WILL CONTINUE TO MONITOR.
--- NOTE | 2020-02-09 19:35 | NUR ---
PATIENT RECEIVED SITTING UP IN WHEELCHAIR. ASSESSMENT & VITAL SIGNS DONE. NO C/O PAIN OR DISTRESS. PATIENT HAD SMALL HARD BM. CALL LIGHT WITHIN REACH. WILL CONTINUE TO MONITOR.
[2020-02-09 19:36] VITALS: BP 135/70
--- NOTE | 2020-02-09 22:55 | NUR ---
PATIENT USED CALL LIGHT FOR ASSIST. PATIENT MINIMAL ASSIST WITH TRANSFER INTO WHEELCHAIR. PATIENT MINIMAL ASSIST ONTO & OFF OF COMMODE. VOID ONLY. PATIENT WASHED HER HANDS & RETURNED TO BED WITH MINIMAL ASSIST. BED LOW. IN BED NEXT TO PATIENT. CALL LIGHT WITHIN REACH. WILL CONTINUE TO MONITOR.
--- NOTE | 2020-02-10 00:04 | NUR ---
I have reviewed this patient and I concur with the Shift Assessment completed by the Licensed Practical Nurse today this shift.
--- NOTE | 2020-02-10 05:56 | NUR ---
PATIENT TOILETED. VOID ONLY. MINIMAL ASSIST INTO & OUT OF BED. PATIENT & IN THE ROOM AGREED TO MOVE OUT OF ROOM FOR MAINTENENCE. BED LOW. CALL LIGHT WITHIN REACH. WILL CONTINUE TO MONITOR.
--- NOTE | 2020-02-10 06:27 | NUR ---
PATIENT & AGREED TO MOVE TO 1117 A& B. MAINTENENCE OF 1114 TO BE DONE. BEDS TO BE CLEANED & MOVED TO [facility] 3 UNTIL 1114 IS CLEARED FOR PATIENTS. WILL PASS ON IN REPORT.
[2020-02-10 07:41] VITALS: BP 145/76
--- NOTE | 2020-02-10 07:59 | NUR ---
MOVED PT TO ROOM 1117A VIA WHEELCHAIR AND WITH ALL BELONGINGS. PT A/O X4, RESP EVEN AND NONLABORED ON RA. NO IV ACCESS NOTED. PT DENIES ANY NEEDS AT THIS TIME. AT BEDSIDE, NAD NOTED, WILL CONTINUE PLAN OF CARE.
--- NOTE | 2020-02-10 08:19 | NUR ---
AM MEDS GIVEN AT THIS TIME. PT UP TO SIDE OF BED, EATING BREAKFAST, OLD FENTANYL PATCH REMOVED AND NEW PATCH PLACED TO RT SHOULDER AREA. PT DENIES ANY NEEDS AT THIS TIME. CALL LIGHT IN REACH, NAD NOTED, WILL CONTINUE TO MONITOR.
--- NOTE | 2020-02-10 10:33 | NUR ---
HELPED PT TO BATHROOM. PT WANTS TO SIT UP IN THE WHEELCHAIR FOR A WHILE. DENIES ANY OTHER NEEDS AT THIS TIME. CALL LIGHT IN REACH, NAD NOTED.
[2020-02-10 11:21] VITALS: BP 119/68
[2020-02-10 19:24] VITALS: BP 97/51
--- NOTE | 2020-02-10 19:31 | NUR ---
PATIENT RECEIVED SITTING UP IN WHEELCHAIR. AT BEDSIDE. ASSESSMENT & VITAL SIGNS DONE. NO C/O PAIN OR DISTRESS. CALL LIGHT WITHIN REACH. CHAIR ALARM ON. WILL CONTINUE TO MONITOR.
--- NOTE | 2020-02-10 23:23 | NUR ---
PATIENT USED CALL LIGHT FOR ASSIST. MINIMAL ASSIST INTO & OUT OF WHEELCHAIR. VOID ONLY. PATIENT BRUSHED HER TEETH. RETURNED TO BED. MINIMAL ASSIST. BED LOW. CALL LIGHT WITHIN REACH. WILL CONTINUE TO MONITOR.
--- NOTE | 2020-02-11 02:20 | NUR ---
PATIENT MINIMAL ASSIST INTO & OUT OF WHEELCHAIR. MINIMAL ASSIST OUT OF WHEELCHAIR & ONTO COMMODE. VOID ONLY. PATIENT RETURNED TO LOW BED. RIGHT ARM ELEVATED ON PILLOW. CALL LIGHT WITHIN REACH. WILL CONTINUE TO MONITOR.
--- NOTE | 2020-02-11 03:00 | NUR ---
I have reviewed this patient and I concur with the Shift Assessment completed by the Licensed Practical Nurse today this shift.
[2020-02-11 05:47] LABS: HEMATOCRIT 31.4 % (36.0-48.0); HEMOGLOBIN 10.3 g/dL (12-16); MCH 29.2 pg (26.0-34.0); MCHC 32.8 g/dL (31.0-37.0); MEAN PLATELET VOLUME 10.2 fL (7.4-10.4); PLATELET COUNT 305 10x3/uL (130-400); RBC 3.53 10x6/uL (4.00-5.40); RDW 13.9 % (11.5-14.5); WBC 6.2 10x3/uL (4.8-10.8)
[2020-02-11 05:54] LABS: CALC OSMOLALITY 278 mosm/kg (275-300); CALCIUM 8.7 mg/dL (8.5-10.1); CARBON DIOXIDE 30.6 mmol/L (21.0-32.0); CHLORIDE - SERUM 104 mmol/L (98-107); CREATININE - SERUM 0.7 mg/dL (0.6-1.3); GLUCOSE 86 mg/dL (74-106); POTASSIUM - SERUM 3.7 mmol/L (3.5-5.1); SODIUM 140 mmol/L (136-145); UREA NITROGEN 14 mg/dL (7-18); eGFR NON AFRICAN AMERICAN 85 mL/min (90-120)
--- NOTE | 2020-02-11 07:49 | NUR ---
PT RESTING IN BED WITH EYES OPEN CALL LIGHT IN REACH WILL MONITER
[2020-02-11 13:16] LABS: EOSINOPHILS 1 % (0-7); LYMPHOCYTES 14 % (15-50); MONOCYTES 21 % (2-11); NEUTROPHILS 61 % (40-80); PLATELET ESTIMATE NORMAL
--- NOTE | 2020-02-11 13:43 | NUR ---
Nutrition Follow-up: Diet: Regular PO intake: 75% average x last 9 meals. States that she is eating about half of her meals. She is drinking 1-2 Boost per day. She does not want Prunes on breakfast tray anymore. Last BM: 02/07/20. WT: 131# (02/01/20) Meds noted: k-dur, miralax (PRN), dulcolax (PRN). Labs reviewed Recommend continue current diet. Will update food preferences. RD following.
[2020-02-11 14:53] VITALS: BP 126/66
--- NOTE | 2020-02-12 03:18 | NUR ---
PT IN BED ASLEEP, AROUSES EASILY TO VOICE, NO NEEDS NOTED, FALL PRECAUTIONS IN PLACE, FLUIDS/CALL LIGHT WITHIN REACH
[2020-02-12 04:31] VITALS: BP 124/49
[2020-02-12 08:22] VITALS: BP 112/57
--- NOTE | 2020-02-12 11:00 | NUR ---
I have reviewed this patient and I concur with the Shift Assessment completed by the Licensed Practical Nurse today this shift.
--- NOTE | 2020-02-12 13:56 | NUR ---
PT RESTING IN BED WITH EYES OPEN CALL LIGHT IN REACH WILL MONITER
--- NOTE | 2020-02-12 17:50 | NUR ---
PT RESTING IN BED WITH EYES OPEN CALL LIGHT IN REACH WILL MONITER
--- NOTE | 2020-02-12 20:33 | NUR ---
PT TOILETED, TRANSFERS WELL WITH MINIMAL ASSISTANCE, NO OTHER NEEDS NOTED HSBAND IN ROOM, FLUIDS/CALL LIGHT WITHIN REACH, BP STILL RUNNING LOW AFTER DURALGESIC D/C'D
[2020-02-13 01:37] VITALS: BP 108/55
--- NOTE | 2020-02-13 07:20 | NUR ---
A/A/OX4. DENIES ANY PAIN OR DISCOMFORT AND VOICES NO REQUESTS. CAST IN PLACE ON RIGHT ARM. FINGERS COOL TO TOUCH AND MOVE EASILY. SITTING UP ON SIDE OF BED AND GETTING DRESSED WITH ASST OF HER . NO APPARENT NEW NEEDS OR PROBLEMS. BE IN LOW, LOCKED POSITION.
[2020-02-13 08:40] LABS: BASOPHILS 0.2 % (0-2); EOSINOPHILS 0.8 % (0-7); HEMATOCRIT 32.5 % (36.0-48.0); HEMOGLOBIN 10.6 g/dL (12-16); IMMATURE GRANULOCYTES 0.8 % (0-5); LYMPHOCYTES 22.1 % (15-50); MCH 29.1 pg (26.0-34.0); MCHC 32.6 g/dL (31.0-37.0); MCV 89.3 fL (80.0-100.0); MEAN PLATELET VOLUME 10.3 fL (7.4-10.4); MONOCYTES 17.6 % (2-11); NEUTROPHILS 58.5 % (40-80); PLATELET COUNT 335 10x3/uL (130-400); RBC 3.64 10x6/uL (4.00-5.40); RDW 13.8 % (11.5-14.5); WBC 4.8 10x3/uL (4.8-10.8)
[2020-02-13 09:12] LABS: CALC OSMOLALITY 278 mosm/kg (275-300); CARBON DIOXIDE 29.5 mmol/L (21.0-32.0); CHLORIDE - SERUM 103 mmol/L (98-107); CREATININE - SERUM 0.7 mg/dL (0.6-1.3); GLUCOSE 92 mg/dL (74-106); POTASSIUM - SERUM 3.8 mmol/L (3.5-5.1); SODIUM 140 mmol/L (136-145); UREA NITROGEN 12 mg/dL (7-18); eGFR NON AFRICAN AMERICAN 85 mL/min (90-120)
--- NOTE | 2020-02-13 10:45 | NUR ---
Nutrition Follow-up: Diet: Regular PO intake: ~78% average x last 9 meals; also drinks 1-2 Boost per day Last BM: 02/07/20. WT: 131# (02/01/20) Meds and labs reviewed. Recommend continue current diet. RD following.
[2020-02-13 10:46] VITALS: BP 97/54
--- NOTE | 2020-02-13 14:06 | NUR ---
CARE TEAM MEETING: PATIENT IS PROGESSING WELL IN THERAPY. HER TENATIVE DISCHARGE DATE IS 02/05/20. WILL CONTINUE TO FOLLOW WITH PATIENT.
--- NOTE | 2020-02-13 15:01 | NUR ---
order has been faxed to [facility] for a plateform walker.
--- NOTE | 2020-02-13 17:21 | NUR ---
ASSISTED UP TO BATHROOM WITH MINIMAL ASST. TOLERATED WELL. REMAIN UP IN W/C AT BEDSIDE FOR EVENING MEAL. IN ROOM WITH PT.
--- NOTE | 2020-02-13 19:20 | NUR ---
PT UP TO TOILET, REMINDED PT TO LOCK WC, BACK LEGS TO TOUCHING BEFORE SITTING, PLACE HAND ON CHAIR ARM/BED/TOILET TO HELP COPPER ETCHER DISTANCE AND POSITION OF OBJECT BEFORE SITTING, NO OTHER NEEDS NOTED, BED IN LOWEST POSITION FLUIDS/CALL LIGHT WITHIN REACH, IN ROOM
[2020-02-14 00:49] VITALS: BP 103/57
[2020-02-14 07:30] VITALS: BP 126/56
--- NOTE | 2020-02-14 07:30 | NUR ---
AROUSES EASILY.DENIES PAIN.CAST INTACT TO LEFT WRIST AND FOREARM.FINGERS PINK AND WARM.SPOUSE ASLEEP IN ROOM.WILL CONTINUE WITH CURRENT PLAN OF CARE.CL IN EASY REACH,BED IN LOW POSITION.
--- NOTE | 2020-02-14 19:20 | NUR ---
PT IN BED, IN ROOM, JOKING AND LAUGHING, NO NEEDS NOTED, FLUIDS/CALL LIGHT WITHIN REACH
[2020-02-14 21:17] VITALS: BP 102/63
--- NOTE | 2020-02-15 03:52 | NUR ---
PT ASLEEP, AROUSES EASILY TO VOICE, RESPIRATIONS EVEN AND UNLABORED, NO NEEDS NOTED, FALL PRECAUTIONS IN PLACE, FLUIDS/CALL LIGHT WITHIN REACH. PT D/C'S HOME TOMORROW ON 02/15/20
--- NOTE | 2020-02-15 07:30 | NUR ---
RESTING QUIETLY IN BED.DENIES NEEDS.CAST INTACT TO RT WRIST/FOREARM,FINGERS PINK AND WARM.SPOUSE IN ROOM.VOICES LOOKING FORWARD TO GOING HOME TODAY.WILL CONTINUE WITH CURRENT PLAN OF CARE,DO DISCHARGE TEACHING.CL IN EASY REACH,BED IN LOW POSITION.
--- NOTE | 2020-02-15 10:34 | NUR ---
PATIENT DISCHARGING HOME TODAY WITH FAMILY. [facility] WILL PROVIDE THERAPY AT HOME. [facility]HAEL HAS DELIVERED A PLATEFORM FOR HER WALKER. DR. NEWTON 02/28/20 @ 10:00, STEFFANY LEBLANC (ORTHO) 02/21/20 @ 2:00.ANDREA SIGNED, IMM SERVED AND EXPLAINED ONE GIVEN TO PATIENT AND ONE FILED IN CHART. DISCHARGE INSTRUCTIONS FAXED TO PCP, HOME [facility]ALTH AND REVIEWED WITH PATIENT PER PRIMARY NURSE.
--- NOTE | 2020-02-15 11:19 | NUR ---
NO COMPARE DATA REVIEWD WITH PATIENT PER PATIENT REQUEST.
[2020-02-15] MEDS ORDERED: K-DUR20 MEQ PO (11:35)
--- NOTE | 2020-02-15 12:00 | NUR ---
DICHARGE TEACHING DONE WITH PATIENT AND SPOUSE.ALL QUESTIONS ANSWERED.
--- NOTE | 2020-02-15 12:20 | NUR ---
[facility] CALLED TO [facility]ABIL AT [facility] IN [place] PER PATIENT REQUEST.
--- NOTE | 2020-02-15 12:35 | NUR ---
DISCHARGED HOME VIA WHEELCHAIR TO CAR.HAS ALL PERSONAL ITEMS AND INSTRUCTIONS.SPOUSE AT SIDE.
== END 2020-02-15 12:35 | disposition home health service (06) | DRG 559 ==
LOC: D.REHAB 17:24
PROVIDERS: ADMIT Emergency Medicine; ATTEND Emergency Medicine
DX: S32.501D Unspecified fracture of right pubis, subsequent encounter for fracture with routine healing (principal); G93.41 Metabolic encephalopathy; R53.2 Functional quadriplegia; D62 Acute posthemorrhagic anemia; E87.1 Hypo-osmolality and hyponatremia; W05.0XXD Fall from non-moving wheelchair, subsequent encounter; J45.909 Unspecified asthma, uncomplicated; I10 Essential (primary) hypertension; I48.91 Unspecified atrial fibrillation; H26.9 Unspecified cataract; S52.501D Unspecified fracture of the lower end of right radius, subsequent encounter for closed fracture with routine healing